=== PATIENT | male | born 1965 | race Caucasian/White ===

== ENCOUNTER 2024-09-12 11:52 | Observation (INO) ==
--- NOTE | 2024-09-12 13:11 | History & Physical Report ---
Date of Service September 12, 2024 Assessment & Plan (1) ICD (implantable cardioverter-defibrillator) in place: (2) Bifascicular bundle branch block: (3) Chronic systolic (congestive) heart failure: Plan 1. Single-chamber ICD: His ICD is at recommended replacement time, we will replace it with a biventricular device. 2. Bifascicular bundle branch block: He has bifascicular block with a QRS duration of over 150 ms on recent electrocardiography. It is likely he will benefit from biventricular pacing and we are hoping his ejection fraction and symptoms will improve. We will need to place a right atrial lead and a left ventricular lead. 3. Congestive heart failure: He does have congestive heart failure although his fluid status has been fairly well-controlled lately. His ejection fraction on recent echocardiography is 25 to 30%. I reviewed the indications, procedure, risks and alternatives with the patient, and answered all questions. Patient understands and agrees to the procedure. Consent obtained. I also reviewed the risks and use of sedation, patient understands and consent obtained. History of Present Illness Chief Complaint: Congestive heart failure, severe left ventricular dysfunction, wide QRS complex Primary Care Provider: Mahesh Herron III, JOEL This is a 58-year-old male with a history of coronary artery disease who is primarily followed by Dr. Stauffer. He had severe left ventricular dysfunction and initially had an attempt at implanting a biventricular ICD, this was done at [facility] on December 14, 2005. At that time it is noted that his coronary sinus system did not have branches large enough to accommodate a pacing lead. A single-chamber ICD was therefore placed using a Guidant model 018 564 cm lead. That the device was replaced with another [employer] single- chamber ICD on July 16, 2010. His ICD reached recommended replacement time January 23, 2024 and his electrocardiogram from January 26, 2024 showed bifascicular block with a QRS duration of 158 ms. An echocardiogram done January 26, 2024 showed severe left ventricular dysfunction with an ejection fraction of 20 to 25%, similar to prior studies years ago. An echocardiogram July 20, 2024 shows moderate to severe left ventricular dysfunction with an ejection fraction of 25 to 30%. Similar to April 2024. He was having a lot of premature ventricular beats and a Holter monitor done from January 26, 2024 through January 31, 2024 showed 19% premature reticular beats with a 12-beat run of nonsustained ventricular tachycardia. With these findings we should consider antiarrhythmic therapy to control his premature beats. His ICD has reached replacement time, however we wanted to try to optimize his medical therapy and see whether we could improve his left ventricular function (which we have not been able to) prior to replacing the device since upgrading to a biventricular ICD may be in order. He has been feeling surprisingly well despite his severe left ventricular dysfunction. He was unable to tolerate high dose beta-blockade due to severe side effects and he was unable to tolerate Entresto due to side effects as well, and therefore he remains on low-dose lisinopril and low-dose metoprolol succinate. He was able to tolerate spironolactone and Jardiance but his left ventricular function has not improved. He does notice however that he has less difficulty with fluid retention on these medications and uses his furosemide only sparingly. He does not have exertional chest discomfort and reports no ICD shocks. We therefore plan to upgrade his device to a biventricular unit by adding an atrial lead and a left ventricular pacing lead, and then replacing the device which is at recommended replacement time in any case. Allergies Allergy/AdvReac Type Severity Reaction Status Date / Time Sulfa (Sulfonamide Allergy Mild RASH Verified 09/12/24 12:17 Antibiotics) mesalamine [From Asacol] AdvReac Intermediate increased Verified 09/12/24 12:17 stomach problems olsalazine [From Dipentum] AdvReac Intermediate increased Verified 09/12/24 12:17 stomach problems Entresto AdvReac GI issues Uncoded 08/01/24 12:11 Home Medications Medication Instructions Recorded Confirmed Type aspirin 81 mg tablet,delayed 81 mg PO QAM 02/10/19 09/12/24 History release furosemide 40 mg tablet 40 mg PO DAILY PRN edema #90 tabs 08/21/19 09/12/24 Rx albuterol sulfate 90 mcg/actuation 2 puff inhalation .COMPLEX PRN 05/19/23 09/12/24 Rx aerosol inhaler (Ventolin HFA) Shortness Of Breath Or Wheezing #6.7 grams atorvastatin 80 mg tablet 80 mg PO QPM #90 tabs 09/15/23 09/12/24 Rx benralizumab 30 mg/mL subcutaneous 30 mg subcut .COMPLEX #1 mL 09/16/23 08/01/24 Rx syringe (Fasenra) spironolactone 25 mg tablet 25 mg PO DAILY #90 tabs 05/07/24 09/12/24 Rx empagliflozin 10 mg tablet 10 mg PO DAILY #90 tabs 05/23/24 09/12/24 Rx (Jardiance) fluticasone propionate 93 See Rx Instructions .Route 05/29/24 09/12/24 History mcg/actuation breath activated .COMPLEX PRN Shortness Of Breath aerosol (Xhance) pantoprazole 40 mg tablet,delayed 40 mg PO QDL #90 tabs 05/29/24 09/12/24 Rx release metoprolol succinate 25 mg 12.5 mg PO QPM 06/08/24 09/12/24 History tablet,extended release 24 hr (Toprol XL) tadalafil 20 mg tablet (Cialis) 20 mg PO DAILY PRN sexual activity 07/04/24 1 Rx #30 tabs mometasone-formoterol HFA 200 2 puff inhalation BID #13 grams 07/27/24 09/12/24 Rx mcg-5 mcg/actuation aerosol inhaler (Dulera) lisinopril 5 mg tablet 5 mg PO QAM #90 tabs 08/03/24 09/12/24 Rx montelukast 10 mg tablet 10 mg PO 09/12/24 History Past Med/Surg History Problem List Frequent PVCs Bifascicular bundle branch block NSVT (nonsustained ventricular tachycardia) Coronary atherosclerosis of [place] coronary vessel (09/18/11) Asthma (09/18/11) S/P CABG (coronary artery bypass graft) Presence of stent in artery Premature ventricular contractions Ischemic cardiomyopathy ICD (implantable cardioverter-defibrillator) in place Esophageal reflux Severe persistent asthma (Chronic) Allergic rhinitis (Chronic) Eosinophilic asthma (Chronic) Encounter for pre-operative examination History of colon polyps Plantar fasciitis Dysphagia Hypertension Hypercholesterolemia Chronic systolic (congestive) heart failure Chronic sinusitis of both maxillary sinuses (Chronic) Medical History History of COVID-19 Ischemic cardiomyopathy History of GI bleed History of ulcerative colitis CAD (coronary artery disease) Asthma History of myocardial infarction History of sleep apnea Ulcerative colitis Surgical History S/P CABG x 2 History of cardiac catheterization History of esophagogastroduodenoscopy (EGD) History of colonoscopy S/P wisdom tooth extraction S/P implantation of automatic cardioverter/defibrillator (AICD) Family History Grandmother Myocardial infarction Father Coronary heart disease Mother Anxiety Cancer Hypertension Brother Coronary heart disease Aunt Kidney disease Other No family history of adverse response to anesthesia No family history of bleeding disorder Denies family history of Colon cancer Ovarian cancer Prostate cancer Breast cancer Social History Smoking Status: Never smoker Second Hand Exposure: No; Do You Dip or Chew Tobacco: No; Hx Alcohol Use: Yes Alcohol type: hard liquor Alcohol Intake Frequency: 2-4 x/Month Hx Substance Use: No Preferred Language: Kazakh Communication Ability: Effective Visual Impairment: No Limitations Hearing Ability: Normal Clinical Nursing Intern Required: No Beliefs That Will Affect Care: None marital status: Current Living Situation: Spouse current occupational status: employed and unemployed 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 HEENT: Unremarkable Neck: No jugular venous distention, carotid pulses are normal and equal bilaterally without bruits. Pulmonary: Clear to auscultation bilaterally. Cardiac: Regular rhythm with no murmur, gallop or rub. Abdomen: Soft, nontender with normal bowel sounds. Extremities: No edema. Neurologic: No focal findings. Gait is steady. Skin: The device site is well-healed without erythema, swelling or tenderness. No rash, ecchymoses or petechiae. Results & Data Results & Data Vital Signs (Past 12 Hours) Vital Signs Pulse Resp BP Pulse Ox O2 Del Method 09/12/24 12:03 59 L 16 113/65 97 Room Air Laboratory Results Intake and Output 09/11/24 09/12/24 09/12/24 22:59 06:59 14:59 Other: Weight 104.1 kg Weight Measurement Method Standing Scale Patient Weight 09/13/24 06:59 Weight 104.1 kg PG Care Time/CCT Total # of Minutes Spent Total Time Spent with Patient: Total time spent is greater than 50% in coordination of care (as documented) at patient's floor/unit and/or counseling patient: Coding Level of Care Code None Diagnoses ICD (implantable cardioverter-defibrillator) in place Z95.810 Bifascicular bundle branch block I45.2 Chronic systolic (congestive) heart failure I50.22
--- NOTE | 2024-09-12 13:16 | Pre Anesthesia Assessment ---
Date of Service September 12, 2024 Pre Sedation Assessment Vital Signs Pulse Resp BP Pulse Ox O2 Del Method 09/12/24 12:03 59 L 16 113/65 97 Room Air Cardiovascular RRR, no murmur, no edema Respiratory normal respiratory effort, lungs clear to auscultation Pre-Sedation Airway Assessment Smoking Status: Never smoker Mallampati Class: II ASA: ASA3 NPO Status Date of Last Intake of Fluids: 09/11/24 Date of Last Intake of Solid Food: 09/11/24 Procedure Planning Contraindications for Sedation: none Current Medications Reviewed: Yes Notes The planned sedation has been discussed with the patient. Informed Consent was obtained. I have identified the patient, determined the appropriateness of sedation and have assessed the patient immediately prior to the procedure. All medicine(s) and interventions are by my order.
[2024-09-12] MEDS: LIDOCAINE 1% LOCAL 20 ML VIAL ONE (13:47)
[2024-09-12] MEDS: VANCOMYCIN HCL 1000MG/20ML VIAL ONE (13:48)
[2024-09-12] MEDS: WATER, STERILE FOR INJ 10 ML VIAL ONE (13:48)
[2024-09-12] MEDS: ceFAZolin 330 MG/ML 1 GM VIAL ONE ×2 (13:49→15:44)
[2024-09-12] MEDS: fentaNYL citrate PF 100 MCG/2 ML VIAL ONE ×3 (14:32→15:43)
[2024-09-12] MEDS: MIDAZOLAM HCL 5 MG/ML 1 ML VIAL ONE (14:32)
[2024-09-12] MEDS: diphenhydrAMINE 50 MG/ML VIAL ONE (15:00)
[2024-09-12] MEDS: MIDAZOLAM HCL 1 MG/ML 2ML VIAL ONE (15:00)
--- NOTE | 2024-09-12 16:10 | Electrophysiology Report ---
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 The subclavian vein was identified and found to be free of obstruction. Left axillary venipuncture was performed and a guidewire placed through left subclavian vein into the right atrium. A 2 cm incision was made through the old implant scar and carried down to the pectoralis fascia. A [employer] coronary sinus sheath was advanced to position in the right atrium. It was positioned near the coronary sinus, dye was injected to opacify the office of the coronary sinus and a guidewire was advanced into the coronary sinus. An appropriate sheath system was advanced into the coronary sinus. Dye was injected in the coronary sinus to identify the venous branches. A good branch was identified and a 0.014 inch guidewire was advanced into the branch. A left ventricular lead was advanced over the guidewire into good position. The pacing threshold was evaluated in this position as noted on the implant data sheet. The sheath system was then removed from the lead and the lead was attached to the anterior pectoral fascia using 2 sutures of 2-0 silk around the lead collar. A second left axillary venipuncture was performed and a guidewire placed the left subclavian vein into the right atrium. A 9 [place] [employer] lead introducer was placed over the guidewire into the left subclavian vein, the dilator and guidewire removed and a bipolar active-fixation steroid tipped atrial pacing lead was advanced the introducer into the superior vena cava. Using a curved stylette the lead was positioned in the region of the right atrial appendage, the screw was extended to attach the lead and the pacing and sensing characteristics were evaluated as noted on the implant data sheet. Diaphragmatic pacing was not evident at full output. The sheath was removed from the lead, and 2 sutures of 2-0 silk were placed around the lead collar and attached to the anterior pectoralis fascia. The ICD pocket was opened during left ventricular lead placement by further anesthetizing along the original implant site and incision was made through the scar and carried down to the ICD generator. The generator was dissected free of tissue and explanted. A vancomycin soaked sponge was placed in the pocket. Once all the leads were in position the ventricular lead was disconnected from the generator and a new biventricular ICD was attached to the chronic ventricular ICD lead and the new atrial lead as well as the new coronary sinus lead. The ICD was placed in the pocket with the leads coiled beneath it and the incision was closed with a running double subcutaneous closure of 3-0 Vicryl followed by running subcuticular skin closure of 4-0 Vicryl. Bacitracin ointment was placed on incision and a dressing applied. [facility] Elect[place]iology codes Indication for Procedure (1) Ischemic cardiomyopathy: (2) ICD (implantable cardioverter-defibrillator) battery depletion: (3) Bifascicular bundle branch block: (4) Chronic systolic (congestive) heart failure: Pacing Procedure 1: Pacin BiV electrode only - stand alone procedure Procedure 2: Pacin Insert permanent lead, single ICD Procedure 1: ICD: 25778 Multi ICD implant, chronic leads Miscellaneous Procedures Procedure 1: EP Miscellaneous: 24715 Contrast injection for venography Procedure 2: EP Miscellaneous: 10664-57 Vengraphy, extremity Procedure 3: EP Miscellaneous: 89505-83 Venography, CS supevsion/interp PG Moderate Sedation Codes Moderate Sedation Codes Procedure 1: Sedation/Anesthesia: 43097 Mod Sedation by the same physician;Init15 Min Child Age 5 & Up Procedure 2: Sedation/Anesthesia: 89529 Mod Sedation by the same physician; Ea [id number] Minutes
[2024-09-12] MEDS ORDERED: ACETAMINOPHEN W/CODEINE #3 1 TAB PO PRN (16:27)
[2024-09-12] MEDS ORDERED: ACETAMINOPHEN 325 MG TAB PO PRN (16:27)
[2024-09-12] MEDS ORDERED: FUROSEMIDE 40 MG TAB PO PRN (16:45)
[2024-09-12] MEDS ORDERED: ALBUTEROL HFA 8 GM INHALER INH PRN (16:45)
[2024-09-12] MEDS ORDERED: FLUTICASONE PROPIONATE NA SPR 16 GM BTL PRN (17:12)
[2024-09-12 19:35] VITALS: RESP 18
[2024-09-12] MEDS: ATORVASTATIN 40 MG TAB PO SCH (20:44)
[2024-09-12] MEDS: METOPROLOL SUCC 25MG EXT REL TAB PO SCH (20:44)
[2024-09-12] MEDS: predniSONE 5 MG TAB PO SCH (23:39)
[2024-09-13 03:38] VITALS: TEMP 97.9; O2SAT 94
[2024-09-13 07:01] VITALS: BP 112/69
--- NOTE | 2024-09-13 07:41 | XRay Report ---
XR chest 2V PA/lateral HISTORY: 58 years-old Male EXACT TIME ORDERED Evaluate for pneumothorax and l status post placement of a left subclavian pacer COMPARISON: CTA chest 02/20/2022 TECHNIQUE: PA and lateral views of the chest FINDINGS: Cardiac silhouette is enlarged. Median sternotomy. Left subclavian pacer/AICD has been placed. No pos tprocedural pneumothorax. Pulmonary vascular congestion. No pleural effusion. Bones appear grossly in tact. IMPRESSION: Status post placement of a left subclavian pacer/AICD. No postprocedural pneumothorax mario ntified. ACT 112: Negative or not required by law. The above report was generated using voice recognition software. It may contain grammatical, syntax o r spelling errors. Electronically signed by: Adonay Brown M.D. 09/13/2024 7:40 AM
[2024-09-13] MEDS: SPIRONOLACTONE 25 MG TAB PO SCH (07:47)
[2024-09-13] MEDS: FLUTICASONE/VILANTEROL 200/25MCG 14 PUFFS/INHALER INH SCH (07:48)
[2024-09-13] MEDS: lisinopril 5 MG TAB PO SCH (07:48)
[2024-09-13] MEDS: EMPAGLIFLOZIN 10 MG TAB PO SCH (07:49)
[2024-09-13] MEDS: ASPIRIN 81 MG ECTAB PO SCH (07:49)
[2024-09-13] MEDS: PANTOprazole 40 MG TAB PO SCH (07:50)
--- NOTE | 2024-09-13 09:43 | Cardiology Progress Note ---
Date of Service September 13, 2024 Assessment & Plan (1) Ischemic cardiomyopathy: (2) ICD (implantable cardioverter-defibrillator) battery depletion: (3) Bifascicular bundle branch block: (4) Chronic systolic (congestive) heart failure: Plan 1. Single-chamber ICD: His ICD is working well but with diaphragmatic pacing. 2. Bifascicular bundle branch block: He has bifascicular block with a QRS duration of over 150 ms on recent electrocardiography. It is likely he will benefit from biventricular pacing and we are hoping his ejection fraction and symptoms will improve. 3. Congestive heart failure: He does have congestive heart failure although his fluid status has been fairly well-controlled lately. His ejection fraction on recent echocardiography is 25 to 30%. 4. POD#1: Doing well from surgical standpoint, Admission and Anticipated Discharge Date Admission Date: September 12, 2024 Subjective He is reporting symptoms compatible with diaphragmatic pacing, but otherwise feels well. No chest pain or SOB Physical Exam Physical Exam: Incision has mild bleeding, mild swelling. No erythema. Cardiac: Regular rhythm and rate, no rub. Lungs: Clear Results & Data Vital Signs (Past 12 Hours) Vital Signs Temp Pulse Pulse Resp BP Pulse Ox O2 Del Method 09/13/24 07:32 60 09/13/24 07:01 36.6 C 76 18 112/69 94 Room Air 09/13/24 03:38 36.6 C 65 18 103/63 94 Room Air 09/12/24 23:13 36.7 C 59 L 18 118/79 96 Room Air 09/12/24 23:09 59 L Diagnostic Findings ECG: fair bi-V paced complex Telemetry: A pacing V pacing, one wide complex run 12 beats in duration PG Care Time/CCT Total # of Minutes Spent Total Time Spent with Patient: Total time spent is greater than 50% in coordination of care (as documented) at patient's floor/unit and/or counseling patient: Coding Level of Care Code 31845 Post Operative Follow-Up Diagnoses Ischemic cardiomyopathy I25.5 ICD (implantable cardioverter-defibrillator) battery depletion Z45.02 Bifascicular bundle branch block I45.2 Chronic systolic (congestive) heart failure I50.22 CPT Codes Implantable Defib Multi lead programming - 71518 ([id number])
[2024-09-13 11:17] VITALS: PULSE 76
[2024-09-13] MEDS ORDERED: predniSONE 5 MG TAB PO SCH (21:00)
--- NOTE | 2024-09-13 21:16 | Electrocardiogram Report ---
Test Reason : Blood Pressure : */* mmHG Vent. Rate : 66 BPM Atrial Rate : 66 BPM P-R Int : 140 ms QRS Dur : 136 ms QT Int : 458 ms P-R-T Axes : 61 244 38 degrees QTcB Int : 480 ms Atrial-sensed ventricular-paced rhythm with occasional Premature ventricular complexes Biventricular pacemaker detected Abnormal ECG When compared with ECG of 01-Aug-2024 12:12, Ventricular pacing is now present Confirmed by Tian Quiroz ([id number]) on 09/13/2024 9:15:56 PM Referred By: Harshal Anders Confirmed By: Tian Quiroz
--- NOTE | 2024-09-13 21:16 | Electrocardiogram Report ---
Test Reason : Blood Pressure : */* mmHG Vent. Rate : 64 BPM Atrial Rate : 64 BPM P-R Int : 140 ms QRS Dur : 136 ms QT Int : 458 ms P-R-T Axes : 56 250 42 degrees QTcB Int : 472 ms Atrial-sensed ventricular-paced rhythm Biventricular pacemaker detected Abnormal ECG When compared with ECG of 12-Sep-2024 16:07, Premature ventricular complexes are no longer Present Confirmed by Tian Quiroz ([id number]) on 09/13/2024 9:16:35 PM Referred By: Harshal Anders Confirmed By: Tian Quiroz
--- NOTE | 2024-09-16 08:55 | Discharge Summary ---
Date of Service September 16, 2024 Admission HPI Per Admitting Provider This is a 58-year-old male with a history of coronary artery disease who is primarily followed by Dr. Stauffer. He had severe left ventricular dysfunction and initially had an attempt at implanting a biventricular ICD, this was done at [facility] on December 14, 2005. At that time it is noted that his coronary sinus system did not have branches large enough to accommodate a pacing lead. A single-chamber ICD was therefore placed using a Guidant model 018 564 cm lead. That the device was replaced with another [employer] single- chamber ICD on July 16, 2010. His ICD reached recommended replacement time January 23, 2024 and his electrocardiogram from January 26, 2024 showed bifascicular block with a QRS duration of 158 ms. An echocardiogram done January 26, 2024 showed severe left ventricular dysfunction with an ejection fraction of 20 to 25%, similar to prior studies years ago. An echocardiogram July 20, 2024 shows moderate to severe left ventricular dysfunction with an ejection fraction of 25 to 30%. Similar to April 2024. He was having a lot of premature ventricular beats and a Holter monitor done from January 26, 2024 through January 31, 2024 showed 19% premature reticular beats with a 12-beat run of nonsustained ventricular tachycardia. With these findings we should consider antiarrhythmic therapy to control his premature beats. His ICD has reached replacement time, however we wanted to try to optimize his medical therapy and see whether we could improve his left ventricular function (which we have not been able to) prior to replacing the device since upgrading to a biventricular ICD may be in order. He has been feeling surprisingly well despite his severe left ventricular dysfunction. He was unable to tolerate high dose beta-blockade due to severe side effects and he was unable to tolerate Entresto due to side effects as well, and therefore he remains on low-dose lisinopril and low-dose metoprolol succinate. He was able to tolerate spironolactone and Jardiance but his left ventricular function has not improved. He does notice however that he has less difficulty with fluid retention on these medications and uses his furosemide only sparingly. He does not have exertional chest discomfort and reports no ICD shocks. We therefore plan to upgrade his device to a biventricular unit by adding an atrial lead and a left ventricular pacing lead, and then replacing the device which is at recommended replacement time in any case. Admission Exam (Per Admitting) Constitutional Constitutional: Alert, cooperative and in no distress. HEENT: Unremarkable Neck: No jugular venous distention, carotid pulses are normal and equal bilaterally without bruits. Pulmonary: Clear to auscultation bilaterally. Cardiac: Regular rhythm with no murmur, gallop or rub. Abdomen: Soft, nontender with normal bowel sounds. Extremities: No edema. Neurologic: No focal findings. Gait is steady. Skin: The device site is well-healed without erythema, swelling or tenderness. No rash, ecchymoses or petechiae. Discharge Data Procedures Performed Operation Date: 09/12/24 13:00 Actual Procedures s Venogram, Unilateral - Harshal Anders MD p ICD Insertion Single or Dual - Harshal Anders MD Hospital Course (1) Ischemic cardiomyopathy: (2) ICD (implantable cardioverter-defibrillator) battery depletion: (3) Bifascicular bundle branch block: (4) Chronic systolic (congestive) heart failure: Plan 1. Postop day #1: Upgrade to a biventricular ICD September 12, 2024, his ICD is working well but with diaphragmatic pacing. Stable for discharge. 2. Bifascicular bundle branch block: He has bifascicular block with an unpaced QRS duration of over 150 ms on recent electrocardiography. This has improved although the QRS complex is not ideal 3. Congestive heart failure: He does have a history of congestive heart failure although his fluid status has been fairly well-controlled lately. His ejection fraction on recent echocardiography is 25 to 30 percent. Coding Level of Care Code None Diagnoses Ischemic cardiomyopathy I25.5 ICD (implantable cardioverter-defibrillator) battery depletion Z45.02 Bifascicular bundle branch block I45.2 Chronic systolic (congestive) heart failure I50.22
== END 2024-09-13 11:41 | disposition home or self-care (01) ==
LOC: EP 11:52 → 2S 11:52
PROC: EPB.ICD (2024-09-12 13:00)

== ENCOUNTER 2025-07-06 22:15 | Inpatient (IN) ==
--- NOTE | 2025-07-06 22:48 | Emergency Department Note ---
Impression & Plan Ventricular fibrillation, ICD (implantable cardioverter-defibrillator) discharge ED Provider Note CHIEF COMPLAINT: "I got shocked" HISTORY OF PRESENT ILLNESS: This 59-year-old male patient with significant past medial history bifascicular bundle branch block, nonsustained ventricular tachycardia, CAD, asthma, ischemic cardiomyopathy, ICD in place, GERD, severe persistent eosinophilic asthma, hypertension, hypercholesterolemia, and chronic systolic heart failure, presents to the emergency department via private vehicle accompanied by his for evaluation after getting shocked by his ICD. Patient states he was at dinner and then went to a show downtown. He was walking back to his car when he felt a shock from his ICD. The patient states he felt somewhat lightheaded and dizzy and was doing some deep breaths prior to the shock. He states he has felt similar before and notes he does not believe that he has ever gotten shocked in the past. The patient follows with [facility] cardiology. He states at this time, he is feeling totally normal. He denies any chest pain or shortness of breath. No abdominal pain, nausea, vomiting. No dizziness, numbness, or tingling. No headache or visual disturbances. History provided by: Patient REVIEW OF SYSTEMS: A 10 system review of systems was performed with positives and pertinent negatives listed in the history of present illness. All other systems were reviewed and are negative. ALLERGIES: Sulfa, Asacol, Dipentum, Entresto PHYSICAL EXAM: VITALS: Vitals are noted on the nurse's note and reviewed by myself. GENERAL: This is a 59-year-old male, in no acute distress, nondiaphoretic, well- developed well-nourished. SKIN: The skin was without rashes, erythema, edema, or bruising. There is no tenting of the skin. Capillary refill less than 2 seconds. HEAD: Normocephalic atraumatic. EYES: Conjunctivae without injection, sclerae without icterus. MOUTH: Mucous membranes moist. Tonsils are not enlarged. Pharynx without erythema or exudate. Uvula midline. Airway patent. Tongue does not deviate. NECK: Supple without nuchal rigidity. No lymphadenopathy. Cervical spine is nontender. No JVD. HEART: Regular rate and rhythm without murmurs gallops or rubs. LUNGS: Clear to auscultation bilaterally without wheezes, rales or rhonchi. No retractions or accessory muscle use. ABDOMEN: Positive bowel sounds x 4. Soft, nontender, without masses or organomegaly. Murray sign negative. No guarding or rebound tenderness. MUSCULOSKELETAL: No muscle atrophy, erythema, or edema noted. Full range of motion without joint tenderness in all extremities. No tenderness to palpation. Normal gait. Strength 5/5 throughout. NEURO: Patient was alert and oriented to person place and time. No focal neurological deficits. An order was placed for continuous personnel monitor. The monitor showed a normal sinus rhythm at a ventricular rate of 62 bpm, per my interpretation. EKG was reviewed by myself and found to be atrial-sensed ventricular-paced rhythm with premature supraventricular complexes which are new when compared to EKG of 09/12/2024. Ventricular rate is 71 bpm. Imaging as interpreted by myself and the radiologist revealed stable cardiomegaly, with radiologist interpretation as above. I agree with the radiologist's findings as based upon my independent interpretation. EMERGENCY DEPARTMENT COURSE: The patient was evaluated as above. The patient presents after an ICD defibrillation. At this time, the patient is feeling well. He has no complaints. IV access was obtained, labs were drawn. Labs reviewed. Per my interpretation, no leukocytosis or anemia. No thrombocytopenia. Renal, hepatic function and electrolytes without significant abnormality. INR 0.9. Troponin 16.6. Lipase 47. Chest x-ray and EKG as above. Pacemaker interrogation shows 1 shock at 2109 this evening due to V-fib episode. Patient has had several dysrhythmias over the past several weeks, though this is the first shock. Did discuss case with Dr. Lopes, [facility] hospitalist physician. The patient will be admitted to the hospitalist service. Please see hospitalist dictation regarding ongoing management and care of this patient as well as final disposition. Case was discussed with the attending physician. This visit is during a period of high volume and high acuity in the emergency department. I attest that I have personally reviewed the patient medication list. I attest that I have reviewed the patient's blood pressure and it was found to be elevated. GCS: 15 In the evaluation and treatment of this patient the following differential diagnoses were entertained: Cardiac ischemia, aortic dissection, pulmonary embolism, pneumothorax, pneumonia, pericarditis, myocarditis, esophageal rupture, GERD, cholecystitis, pancreatitis, musculoskeletal, as well as other pathologies. The chart was completed utilizing [employer] Speech voice recognition software. Grammatical errors, random word insertions, pronoun errors, and incomplete sentences are an occasional consequence of this system due to software limitations, ambient noise, and hardware issues. Any formal questions or concerns about the content, text, or information contained within the body of this dictation should be directly addressed to the provider for clarification. Past Med/Surg History Problem List (Updated 07/07/25 @ 05:55 by Whitney Pantoja PA-C) ICD (implantable cardioverter-defibrillator) discharge (Acute) Ventricular fibrillation (Acute) Bifascicular bundle branch block NSVT (nonsustained ventricular tachycardia) Coronary atherosclerosis of pala coronary vessel (09/18/11) Asthma (09/18/11) Ischemic cardiomyopathy ICD (implantable cardioverter-defibrillator) in place Esophageal reflux Severe persistent asthma (Chronic) Allergic rhinitis (Chronic) Eosinophilic asthma (Chronic) Plantar fasciitis Dysphagia Hypertension Hypercholesterolemia Chronic systolic (congestive) heart failure Chronic sinusitis of both maxillary sinuses (Chronic) Medical History ICD (implantable cardioverter-defibrillator) battery depletion History of colon polyps Presence of stent in artery History of COVID-19 05/08/23 @ [facility]--fever, harsh cough, fatigue--pt states all symptoms have improved (he was on paxlovid) Ischemic cardiomyopathy History of GI bleed History of ulcerative colitis CAD (coronary artery disease) follows with Dr. Stauffer>NEXT APT 12/05/21 Asthma HAS NOT NEEDED INHALER RECENTLY History of myocardial infarction 2000; 2012 History of sleep apnea resolved with wt loss Ulcerative colitis Surgical History S/P CABG (coronary artery bypass graft) S/P CABG x 2 History of cardiac catheterization History of esophagogastroduodenoscopy (EGD) History of colonoscopy S/P wisdom tooth extraction S/P implantation of automatic cardioverter/defibrillator (AICD) Family History Grandmother Myocardial infarction Father Coronary heart disease Mother Anxiety Cancer Hypertension Brother Coronary heart disease Aunt Kidney disease Other No family history of adverse response to anesthesia No family history of bleeding disorder Denies family history of Colon cancer Ovarian cancer Prostate cancer Breast cancer Social History Smoking Status: Unknown if ever smoked Second Hand Exposure: No; Do You Dip or Chew Tobacco: No; Hx Alcohol Use: No Hx Substance Use: No Preferred Language: Surinamese Communication Ability: Effective Visual Impairment: No Limitations Hearing Ability: Normal Environmental Emergencies Planner Required: No Beliefs That Will Affect Care: None marital status: Current Living Situation: Spouse current occupational status: employed 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 Other Information That Helps Us Care for You: No Feels Safe at Home: Yes Safety Concerns: Feels Safe At This Time Childhood Exposure to Second-Hand Smoke: No Diet: vegan caffeine: Yes (one coffee a day ) during the past year weight has: remained stable Dental Care, Regularly: Yes Physical Activity Frequency: Daily Seatbelt Use: always Sunscreen Use: No Assistive Devices: Glasses Allergies Allergies Allergy/AdvReac Type Severity Reaction Status Date / Time Sulfa (Sulfonamide Allergy Mild RASH Verified 05/30/25 11:02 Antibiotics) mesalamine [From Asacol] AdvReac Intermediate increased Verified 05/30/25 11:02 stomach problems olsalazine [From Dipentum] AdvReac Intermediate increased Verified 05/30/25 11:02 stomach problems sacubitril [From Entresto] AdvReac Gastrointestinal Verified 05/30/25 11:02 Upset valsartan [From Entresto] AdvReac Gastrointestinal Verified 05/30/25 11:02 Upset Home Meds Home Medications Medication Instructions Recorded Confirmed aspirin 81 mg tablet,delayed 81 mg PO QAM 02/10/19 05/30/25 release Previous Rx's Medication Instructions Recorded furosemide 40 mg tablet 40 mg PO DAILY PRN edema #90 tabs 08/21/19 albuterol sulfate 90 mcg/actuation 2 puff inhalation .COMPLEX PRN 05/19/23 aerosol inhaler (Ventolin HFA) Shortness Of Breath Or Wheezing #6.7 grams tadalafil 20 mg tablet (Cialis) 20 mg PO DAILY PRN sexual activity 07/04/24 #30 tabs lisinopril 5 mg tablet 5 mg PO QAM #90 tabs 08/03/24 metoprolol succinate 25 mg 12.5 mg (1/2 x 25 mg) PO QPM #45 10/02/24 tablet,extended release 24 hr tabs (Toprol XL) empagliflozin 10 mg tablet 10 mg PO DAILY #90 tabs 10/06/24 (Jardiance) benralizumab 30 mg/mL subcutaneous 30 mg subcut .COMPLEX #1 mL 10/09/24 auto-injector atorvastatin 80 mg tablet 80 mg PO QPM #90 tabs 12/04/24 prednisone 10 mg tablet 5 mg (1/2 x 10 mg) PO DAILY #30 01/04/25 tabs fluticasone propionate 93 See Rx Instructions .Route 01/31/25 mcg/actuation breath activated .COMPLEX PRN Shortness Of Breath aerosol (Xhance) #16 mL mometasone-formoterol HFA 200 2 puff inhalation BID #13 grams 01/31/25 mcg-5 mcg/actuation aerosol inhaler (Dulera) spironolactone 25 mg tablet 25 mg PO DAILY #90 tabs 04/23/25 pantoprazole 40 mg tablet,delayed 40 mg PO QDL #90 tabs 06/25/25 release Results & Data (ED) Vital Signs Vital Signs - 24 hr 07/06/25 22:16 07/06/25 22:22 07/06/25 22:24 Temperature 36.8 C Temperature Source Temporal Artery Scan Pulse Rate 67 74 Pulse Rate [Apical] Pulse Rate from SpO2 Sensor Pulse Rhythm Regular Pulse Strength Normal Respiratory Rate 18 18 Respiratory Effort / Characteristics Non-Labored Spontaneous Respiratory Depth Normal Respiratory Pattern Regular Blood Pressure 125/82 Blood Pressure [Right Arm] Blood Pressure Mean 96 Blood Pressure Mean [Right Arm] Blood Pressure Position Sitting Blood Pressure Position [Right Arm] Pulse Oximetry 98 99 99 Oxygen Delivery Method Room Air Room Air Room Air Sepsis Recent Fever Within 48 Hours No Sepsis New/Unexplained Change in Mental Status No Sepsis Action Taken by Nursing No Action Required 07/06/25 22:24 07/06/25 22:24 07/06/25 23:03 Temperature Temperature Source Pulse Rate 84 Pulse Rate [Apical] 71 Pulse Rate from SpO2 Sensor 66 Pulse Rhythm Pulse Strength Respiratory Rate 16 20 Respiratory Effort / Characteristics Non-Labored Spontaneous Respiratory Depth Normal Respiratory Pattern Regular Blood Pressure 115/79 Blood Pressure [Right Arm] 141/90 H Blood Pressure Mean 91 Blood Pressure Mean [Right Arm] 107 Blood Pressure Position Blood Pressure Position [Right Arm] Semi-fowlers Pulse Oximetry 99 97 Oxygen Delivery Method Room Air Sepsis Recent Fever Within 48 Hours Sepsis New/Unexplained Change in Mental Status Sepsis Action Taken by Nursing 07/06/25 23:30 07/06/25 23:33 07/07/25 00:03 Temperature Temperature Source Pulse Rate Pulse Rate [Apical] Pulse Rate from SpO2 Sensor 69 69 Pulse Rhythm Pulse Strength Respiratory Rate 20 12 Respiratory Effort / Characteristics Respiratory Depth Respiratory Pattern Blood Pressure 126/79 126/79 124/71 Blood Pressure [Right Arm] Blood Pressure Mean 89 94 88 Blood Pressure Mean [Right Arm] Blood Pressure Position Blood Pressure Position [Right Arm] Pulse Oximetry 97 98 Oxygen Delivery Method Sepsis Recent Fever Within 48 Hours Sepsis New/Unexplained Change in Mental Status Sepsis Action Taken by Nursing Laboratory Data 07/06/25 22:35 07/06/25 22:35 Lab Results 07/06/25 Range/Units 22:35 WBC 9.21 (4.8-10.8) K/ul RBC 4.81 (4.70-6.10) M/uL Hgb 15.0 (14.0-18.0) g/dl Hct 45.2 (42.0-52.0) % MCV 94.0 (80.0-100.0) fL MCH 31.2 (25.0-34.0) pg MCHC 33.2 (32.0-36.0) g/dL RDW Std Deviation 44.5 (36.4-46.3) fL RDW Coeff of Héctor 13.0 (11.5-14.5) % Plt Count 125 L (130-400) K/uL MPV 11.6 (9.4-12.4) fL Immature Gran % (Auto) 0.4 % Neut % (Auto) 62.4 % Lymph % (Auto) 24.8 % [place] % (Auto) 12.1 % Eos % (Auto) 0.0 % Baso % (Auto) 0.3 % Neut # (Auto) 5.75 (1.40-6.50) K/uL Lymph # (Auto) 2.28 (1.20-3.40) K/uL [place] # (Auto) 1.11 H (0.11-0.59) K/uL Eos # (Auto) 0.00 (0.00-0.50) K/uL Baso # (Auto) 0.03 (0.00-0.20) K/uL Immature Gran # (Auto) 0.04 (0.01-0.20) K/uL PT 10.2 (9.0-12.0) Seconds INR 0.9 (0.9-1.1) APTT 27 (21-31) Seconds PTT Ratio 1.0 Sodium 136 (136-145) mmol/L Potassium 3.8 (3.5-5.1) mmol/L Chloride 103 (98-107) mmol/L Carbon Dioxide 26 (21-32) mmol/L Anion Gap 7 (3-11) BUN 16 (6-23) mg/dl Creatinine 1.18 (0.6-1.4) mg/dl Est Cr Clr Drug Dosing 83.0 ml/min eGFR 71.53 BUN/Creatinine Ratio 13.6 (10-20) Glucose 93 (70-99(Fasting)) mg/dl Calcium 8.8 (8.6-10.3) mg/dl Magnesium 2.1 (1.7-2.4) mg/dl Total Bilirubin 0.5 (0.2-1.0) mg/dl AST 17 (13-39) U/L ALT 11 (7-52) U/L Alkaline Phosphatase 114 H (34-104) U/L Troponin I High Sens 16.6 (0-20) pg/ml Total Protein 6.6 (6.0-8.3) gm/dl Albumin 3.8 (3.4-5.0) gm/dl Globulin 2.8 (2.5-4.0) gm/dl Albumin/Globulin Ratio 1.4 (0.9-2) Lipase 47 (11-82) U/L Administered Medications Discontinued Medications Potassium Chloride (Potassium Chloride Crtab 20 Meq Tabcr) 40 meq PO NOW STA Stop: 07/07/25 00:28 Last Admin: 07/07/25 01:12 Dose: 40 meq Documented By: Imaging Data Radiologist's Impression: Chest X-Ray 07/06/25 22:22 Exam(s): XR CXR 1 VIEW EXAM: XR Chest, 1 View CLINICAL HISTORY: Chest pain, nonspecific. TECHNIQUE: Frontal view of the chest. COMPARISON: 09/13/2024 FINDINGS: Lungs: No focal airspace consolidation. The pulmonary vasculature demonstrates no significant radiographic abnormality. Pleural space: Unremarkable. No pneumothorax. No large pleural effusion. Heart: Cardiomegaly. Stable postsurgical changes. Mediastinum: The mediastinal contours are stable. The trachea is midline. Bones/joints: The sternal hardware appears maintained. No acute fracture. Tubes, lines and devices: Left subclavian central venous catheter tip in the approach dual chamber defibrillator pacer superior vena cava. IMPRESSION: Stable cardiomegaly with postoperative changes and defibrillator pacer leads. No focal airspace consolidation. No radiographic evidence for florid CHF. Electronically signed by: Sloan Ortega MD 07/07/25 01:00 AM Discharge Plan Visit Data Chief Complaint: Cardiac Assessment Stated Complaint: DEFIBRULATOR DISCHARGED ED Provider: Hernando Newell ED Midlevel Provider: Whitney Pantoja Discharge Problem: Ventricular fibrillation, ICD (implantable cardioverter-defibrillator) discharge Patient Disposition: Admitted As Inpatient Condition: Good Discharge Instructions Interventions: ED Discharge Assessment Last Done: 07/07/25 01:29
[2025-07-06 22:51] LABS: Hematocrit (blood only) 45.2 % (42.0-52.0); Hemoglobin 15.0 g/dl (14.0-18.0); Immature Granulocytes # (auto) 0.04 K/uL (0.01-0.20); Immature Granulocytes % (auto) 0.4 %; Mean Corpuscular Hemoglobin 31.2 pg (25.0-34.0); Mean Corpuscular Volume 94.0 fL (80.0-100.0); Platelet Count 125 K/uL (130-400); RDW Standard Deviation 44.5 fL (36.4-46.3); Red Blood Count 4.81 M/uL (4.70-6.10); White Blood Count 9.21 K/ul (4.8-10.8)
[2025-07-06 23:07] LABS: Alanine Aminotransferase 11.0 U/L (7-52); Albumin Globulin Ratio 1.4 (0.9-2); Alkaline Phosphatase 114.0 U/L (34-104); Anion Gap 7.0 (3-11); Bilirubin,Total 0.5 mg/dl (0.2-1.0); Blood Urea Nitrogen 16.0 mg/dl (6-23); Calcium 8.8 mg/dl (8.6-10.3); Carbon Dioxide 26.0 mmol/L (21-32); Chloride 103.0 mmol/L (98-107); Creatinine Clr Calc Pharmacy 83.0 ml/min; Globulin 2.8 gm/dl (2.5-4.0); Glucose 93.0 mg/dl (70-99(Fasting)); Lipase 47.0 U/L (11-82); Potassium 3.8 mmol/L (3.5-5.1); Sodium 136.0 mmol/L (136-145); Total Protein 6.6 gm/dl (6.0-8.3)
[2025-07-06 23:26] LABS: INR 0.9 (0.9-1.1); Partial Thromboplastin Time 27 Seconds (21-31); Prothrombin Time 10.2 Seconds (9.0-12.0)
[2025-07-07 00:39] LABS: Magnesium 2.1 mg/dl (1.7-2.4)
--- NOTE | 2025-07-07 00:41 | History & Physical Report ---
Date of Service July 07, 2025 Assessment & Plan (1) Ventricular fibrillation: (2) ICD (implantable cardioverter-defibrillator) discharge: (3) NSVT (nonsustained ventricular tachycardia): (4) Ischemic cardiomyopathy: Plan The patient is a 59-year-old male with a past medical history including bifascicular bundle branch block, nonsustained ventricular tachycardia, CAD, asthma, ischemic cardiomyopathy, ICD in place, GERD, severe persistent eosinophilic asthma, hypertension, hypercholesterolemia, and chronic systolic heart failure. He reports that as he and his were walking from dinner earlier this evening, shortly after 10:00, he started to feel lightheaded, dizzy and was doing some deep breathing, as he had several times before, and then was shocked by his ICD. After that he felt generally weak and fatigued, and his brought him to the emergency department for assessment. In the emergency department [employer] was consulted, and reports that the patient had an episode of ventricular fibrillation, that was shocked at 21:09. He underwent routine laboratories, had a normal chest x-ray, and [facility] Card[facility] Dr. Anders was consulted by the ED, and felt that antiarrhythmic such amiodarone were not indicated, and patient was then admitted to the PCU. Ventricular fibrillation/status post ICD discharge- The patient will be admitted to telemetry for serial cardiac enzymes, serial EKG's, cardiac rhythm monitoring Most recent echocardiogram from 03/13/2025 showed ejection fraction of 25-30%, with akinetic apex, and other leblanc hypokinetic, with no significant change compared to 07/20/2024 Troponin 16.6, will be followed serially Continue aspirin, Jardiance, lisinopril, metoprolol succinate, spironolactone and furosemide For a potassium of 3.8, patient was given Klor-Con 40 mill equivalents p.o. Magnesium level was normal at 2.1 Follow serial CBC with differential, renal function panel, magnesium and troponin Consult cardiology Asthma- Continue routine inhalers Hyperlipidemia- Continue atorvastatin GERD- Continue pantoprazole Chronic prednisone use- Continue 5 mg daily, no need for stress dosing at this time History of Present Illness Chief Complaint: The patient presents to the emergency department via private vehicle, accompanied by his . He reports that he and his had gone to dinner, and while walking back to his car he felt somewhat lightheaded, dizzy and was doing some deep breathing, and then had a shock from his ICD. He reports having other episodes of similar symptoms in the past, but is never been shocked before. In the emergency department he primarily reports being fatigued, he denies chest pain, shortness of breath, nausea or vomiting. Primary Care Provider: Mahesh Herron, III, JOEL The patient is a 59-year-old male with a past medical history including bifascicular bundle branch block, nonsustained ventricular tachycardia, CAD, asthma, ischemic cardiomyopathy, ICD in place, GERD, severe persistent eosinophilic asthma, hypertension, hypercholesterolemia, and chronic systolic heart failure. He reports that as he and his were walking from dinner earlier this evening, shortly after 10:00, he started to feel lightheaded, dizzy and was doing some deep breathing, as he had several times before, and then was shocked by his ICD. After that he felt generally weak and fatigued, and his brought him to the emergency department for assessment. In the emergency department [employer] was consulted, and reports that the patient had an episode of ventricular fibrillation, that was shocked at 21:09. He underwent routine laboratories, had a normal chest x-ray, and was [facility] Cardiology Dr. Anders was consulted by the ED, and felt that antiarrhythmic such amiodarone were not indicated, and patient was then admitted to the PCU. Allergies Allergy/AdvReac Type Severity Reaction Status Date / Time Sulfa (Sulfonamide Allergy Mild RASH Verified 05/30/25 11:02 Antibiotics) mesalamine [From Asacol] AdvReac Intermediate increased Verified 05/30/25 11:02 stomach problems olsalazine [From Dipentum] AdvReac Intermediate increased Verified 05/30/25 11:02 stomach problems sacubitril [From Entresto] AdvReac Gastrointestinal Verified 05/30/25 11:02 Upset valsartan [From Entresto] AdvReac Gastrointestinal Verified 05/30/25 11:02 Upset Home Medications Medication Instructions Recorded Confirmed Type aspirin 81 mg tablet,delayed 81 mg PO QAM 02/10/19 05/30/25 History release furosemide 40 mg tablet 40 mg PO DAILY PRN edema #90 tabs 08/21/19 05/30/25 Rx albuterol sulfate 90 mcg/actuation 2 puff inhalation .COMPLEX PRN 05/19/23 05/30/25 Rx aerosol inhaler (Ventolin HFA) Shortness Of Breath Or Wheezing #6.7 grams tadalafil 20 mg tablet (Cialis) 20 mg PO DAILY PRN sexual activity 07/04/24 05/30/25 Rx #30 tabs lisinopril 5 mg tablet 5 mg PO QAM #90 tabs 08/03/24 05/30/25 Rx metoprolol succinate 25 mg 12.5 mg (1/2 x 25 mg) PO QPM #45 10/02/24 05/30/25 Rx tablet,extended release 24 hr tabs (Toprol XL) empagliflozin 10 mg tablet 10 mg PO DAILY #90 tabs 10/06/24 05/30/25 Rx (Jardiance) benralizumab 30 mg/mL subcutaneous 30 mg subcut .COMPLEX #1 mL 10/09/24 05/30/25 Rx auto-injector atorvastatin 80 mg tablet 80 mg PO QPM #90 tabs 12/04/24 05/30/25 Rx prednisone 10 mg tablet 5 mg (1/2 x 10 mg) PO DAILY #30 01/04/25 05/30/25 Rx tabs fluticasone propionate 93 See Rx Instructions .Route 01/31/25 05/30/25 Rx mcg/actuation breath activated .COMPLEX PRN Shortness Of Breath aerosol (Xhance) #16 mL mometasone-formoterol HFA 200 2 puff inhalation BID #13 grams 01/31/25 05/30/25 Rx mcg-5 mcg/actuation aerosol inhaler (Dulera) spironolactone 25 mg tablet 25 mg PO DAILY #90 tabs 04/23/25 05/30/25 Rx pantoprazole 40 mg tablet,delayed 40 mg PO QDL #90 tabs 06/25/25 Rx release Past Med/Surg History Problem List (Updated 07/07/25 @ 04:02 by Asif Lopes MD) ICD (implantable cardioverter-defibrillator) discharge Ventricular fibrillation Bifascicular bundle branch block NSVT (nonsustained ventricular tachycardia) Coronary atherosclerosis of [place] coronary vessel (09/18/11) Asthma (09/18/11) Ischemic cardiomyopathy ICD (implantable cardioverter-defibrillator) in place Esophageal reflux Severe persistent asthma (Chronic) Allergic rhinitis (Chronic) Eosinophilic asthma (Chronic) Plantar fasciitis Dysphagia Hypertension Hypercholesterolemia Chronic systolic (congestive) heart failure Chronic sinusitis of both maxillary sinuses (Chronic) Medical History (Updated 07/07/25 @ 04:02 by Asif Lopes MD) ICD (implantable cardioverter-defibrillator) battery depletion History of colon polyps Presence of stent in artery History of COVID-19 05/08/23 @ [facility]--fever, harsh cough, fatigue--pt states all symptoms have improved (he was on paxlovid) Ischemic cardiomyopathy History of GI bleed History of ulcerative colitis CAD (coronary artery disease) follows with Dr. Stauffer>NEXT APT 12/05/21 Asthma HAS NOT NEEDED INHALER RECENTLY History of myocardial infarction 2000; 2012 History of sleep apnea resolved with wt loss Ulcerative colitis Surgical History S/P CABG (coronary artery bypass graft) S/P CABG x 2 History of cardiac catheterization History of esophagogastroduodenoscopy (EGD) History of colonoscopy S/P wisdom tooth extraction S/P implantation of automatic cardioverter/defibrillator (AICD) Family History Grandmother Myocardial infarction Father Coronary heart disease Mother Anxiety Cancer Hypertension Brother Coronary heart disease Aunt Kidney disease Other No family history of adverse response to anesthesia No family history of bleeding disorder Denies family history of Colon cancer Ovarian cancer Prostate cancer Breast cancer Social History (Updated 05/30/25 @ 11:11 by Hernan Coe) Smoking Status: Never smoker Second Hand Exposure: No; Do You Dip or Chew Tobacco: No; Hx Alcohol Use: Yes Alcohol type: hard liquor Alcohol Intake Frequency: 2-3 x/Week Hx Substance Use: No Preferred Language: Polish Communication Ability: Effective Visual Impairment: No Limitations Hearing Ability: Normal [place] Agent Required: No Beliefs That Will Affect Care: None marital status: Current Living Situation: Spouse current occupational status: employed 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 Feels Safe at Home: Yes Childhood Exposure to Second-Hand Smoke: No Diet: vegan caffeine: Yes (one coffee a day ) during the past year weight has: remained stable Dental Care, Regularly: Yes Physical Activity Frequency: Daily Seatbelt Use: always Sunscreen Use: No Assistive Devices: Glasses Review of Systems Review of Systems: The patient denies chest pain, palpitations, lower extremity swelling, sore throat, fevers, chills, sweats, nausea, vomiting, diarrhea , constipation, abdominal pain, pelvic pain, blood in urine or stool, dysuria, urinary frequency or urgency, memory loss, loss of consciousness, rash, abnormal bruising or bleeding, imbalance, focal weakness, numbness or tingling in arms or legs, generalized arthralgias or myalgias, back or neck pain, or night sweats. The review of systems is otherwise negative other than for that already noted above, and at least 10 systems have been reviewed. Physical Exam Physical Exam: The patient is awake, alert and oriented 3, well developed and well nourished, normocephalic and atraumatic, lying in bed and in no acute distress. HEENT--PERRL, EOMI, mucous membranes and oropharynx mildly dry. Neck--supple. No JVD. No bruits. Thyroid normal, trachea midline, no adenopathy. Heart--normal S1 and S2. No murmurs, rubs or gallops. Lungs--clear bilaterally, no respiratory distress, no accessory muscle use. Abdomen--normal bowel sounds and soft. Nontender. Nondistended. Obese Extremities--no cyanosis or clubbing. No edema. Dermatologic--normal skin turgor, normal color, no abnormal lymph nodes, no rash. Neurologic--cranial nerves II through XII grossly intact. Rheumatologic--normal range of motion. Psychiatric--normal affect. Results & Data Results & Data Vital Signs (Past 12 Hours) Vital Signs Temp Pulse Pulse Resp BP BP Pulse Ox 07/06/25 23:33 20 126/79 97 07/06/25 23:30 126/79 07/06/25 23:03 20 115/79 97 07/06/25 22:24 84 07/06/25 22:24 71 16 141/90 H 99 07/06/25 22:24 99 07/06/25 22:22 74 18 99 07/06/25 22:16 36.8 C 67 18 125/82 98 O2 Del Method 07/06/25 23:33 07/06/25 23:30 07/06/25 23:03 07/06/25 22:24 07/06/25 22:24 Room Air 07/06/25 22:24 Room Air 07/06/25 22:22 Room Air 07/06/25 22:16 Room Air Laboratory Results Laboratory Results WBC 9.21 K/ul (4.8-10.8) 07/06/25 22:35 RBC 4.81 M/uL (4.70-6.10) 07/06/25 22:35 Hgb 15.0 g/dl (14.0-18.0) 07/06/25 22: Hct 45.2 % (42.0-52.0) 07/06/25 22: MCV 94.0 fL (80.0-100.0) 07/06/25 22: MCH 31.2 pg (25.0-34.0) 07/06/25 22: MCHC 33.2 g/dL (32.0-36.0) 07/06/25: RDW Std Deviation 44.5 fL (36.4-46.3) 07/06/25: RDW Coeff of Héctor 13.0 % (11.5-14.5) 07/06/25: Plt Count 125 K/uL (130-400) L 07/06/25: MPV 11.6 fL (9.4-12.4) 07/06/25 22:35 Immature Gran % (Auto) 0.4 % 07/06/25 22: Neut % (Auto) 62.4 % 07/06/25 22: Lymph % (Auto) 24.8 % 07/06/25 22:35 [place] % (Auto) 12.1 % 07/06/25 22:35 Eos % (Auto) 0.0 % 07/06/25: Baso % (Auto) 0.3 % 07/06/25: Neut # (Auto) 5.75 K/uL (1.40-6.50) 07/06/25 22:35 Lymph # (Auto) 2.28 K/uL (1.20-3.40) 07/06/25 22:35 [place] # (Auto) 1.11 K/uL (0.11-0.59) H 07/06/25 22:35 Eos # (Auto) 0.00 K/uL (0.00-0.50) 07/06/25 22:35 Baso # (Auto) 0.03 K/uL (0.00-0.20) 07/06/25 22:35 Immature Gran # (Auto) 0.04 K/uL (0.01-0.20) 07/06/25 22:35 PT 10.2 Seconds (9.0-12.0) 07/06/25 22:35 INR 0.9 (0.9-1.1) 07/06/25 22:35 APTT 27 Seconds (21-31) 07/06/25 22:35 PTT Ratio 1.0 07/06/25 22:35 Sodium 136 mmol/L (136-145) 07/06/25 22:35 Potassium 3.8 mmol/L (3.5-5.1) 07/06/25 22:35 Chloride 103 mmol/L (98-107) 07/06/25 22:35 Carbon Dioxide 26 mmol/L (21-32) 07/06/25 22:35 Anion Gap 7 (3-11) 07/06/25 22:35 BUN 16 mg/dl (6-23) 07/06/25 22:35 Creatinine 1.18 mg/dl (0.6-1.4) 07/06/25 22:35 Est Cr Clr Drug Dosing 83.0 ml/min 07/06/25 22:35 eGFR 71.53 07/06/25 22:35 BUN/Creatinine Ratio 13.6 (10-20) 07/06/25 22:35 Glucose 93 mg/dl (70-99(Fasting)) 07/06/25 22:35 Calcium 8.8 mg/dl (8.6-10.3) 07/06/25 22:35 Magnesium 2.1 mg/dl (1.7-2.4) 07/06/25 22:35 Total Bilirubin 0.5 mg/dl (0.2-1.0) 07/06/25 22:35 AST 17 U/L (13-39) 07/06/25 22:35 ALT 11 U/L (7-52) 07/06/25 22:35 Alkaline Phosphatase 114 U/L (34-104) H 08/15/25 22:35 Troponin I High Sens 16.6 pg/ml (0-20) 07/06/25 22:35 Total Protein 6.6 gm/dl (6.0-8.3) 07/06/25 22:35 Albumin 3.8 gm/dl (3.4-5.0) 07/06/25 22:35 Globulin 2.8 gm/dl (2.5-4.0) 07/06/25 22:35 Albumin/Globulin Ratio 1.4 (0.9-2) 07/06/25 22:35 Lipase 47 U/L (11-82) 07/06/25 22:35 Impressions Chest X-Ray 07/06/25 22:22 Exam(s): XR CXR 1 VIEW EXAM: XR Chest, 1 View CLINICAL HISTORY: Chest pain, nonspecific. TECHNIQUE: Frontal view of the chest. COMPARISON: 09/13/2024 FINDINGS: Lungs: No focal airspace consolidation. The pulmonary vasculature demonstrates no significant radiographic abnormality. Pleural space: Unremarkable. No pneumothorax. No large pleural effusion. Heart: Cardiomegaly. Stable postsurgical changes. Mediastinum: The mediastinal contours are stable. The trachea is midline. Bones/joints: The sternal hardware appears maintained. No acute fracture. Tubes, lines and devices: Left subclavian central venous catheter tip in the approach dual chamber defibrillator pacer superior vena cava. IMPRESSION: Stable cardiomegaly with postoperative changes and defibrillator pacer leads. No focal airspace consolidation. No radiographic evidence for florid CHF. Electronically signed by: Sloan Ortega MD 07/07/25 01:00 AM Code Status & VTE Plan Code Status Full code VTE Prophylaxis Plan VTE Prophylaxis will be ordered: Yes PG Care Time/CCT Total # of Minutes Spent Total Time Spent with Patient: Total time spent is greater than 50% in coordination of care (as documented) at patient's floor/unit and/or counseling patient: Coding Level of Care Code 03494 INT INP/OBS CARE 3/75MIN Diagnoses Ventricular fibrillation I49.01 ICD (implantable cardioverter-defibrillator) discharge Z45.02 NSVT (nonsustained ventricular tachycardia) I47.29 Ischemic cardiomyopathy I25.5
--- NOTE | 2025-07-07 01:01 | XRay Report ---
Exam(s): XR CXR 1 VIEW EXAM: XR Chest, 1 View CLINICAL HISTORY: Chest pain, nonspecific. TECHNIQUE: Frontal view of the chest. COMPARISON: 09/13/2024 FINDINGS: Lungs: No focal airspace consolidation. The pulmonary vasculature demonstrates no significant radiographic abnormality. Pleural space: Unremarkable. No pneumothorax. No large pleural effusion. Heart: Cardiomegaly. Stable postsurgical changes. Mediastinum: The mediastinal contours are stable. The trachea is midline. Bones/joints: The sternal hardware appears maintained. No acute fracture. Tubes, lines and devices: Left subclavian central venous catheter tip in the approach dual chamber defibrillator pacer superior vena cava. IMPRESSION: Stable cardiomegaly with postoperative changes and defibrillator pacer leads. No focal airspace consolidation. No radiographic evidence for florid CHF. Electronically signed by: Sloan Ortega MD 07/07/25 01:00 AM
[2025-07-07] MEDS: POTASSIUM CHLORIDE CRTAB 20 MEQ TABCR PO STA (01:12)
[2025-07-07] MEDS ORDERED: ALBUTEROL HFA 8 GM INHALER INH PRN (01:38)
[2025-07-07] MEDS ORDERED: ACETAMINOPHEN 325 MG TAB PO PRN (01:38)
--- NOTE | 2025-07-07 04:07 | Billing Data ---
Date of Service July 07, 2025 Coding Level of Care Code 24766 INT INP/OBS CARE
[2025-07-07 06:07] LABS: Hematocrit (blood only) 42.8 % (42.0-52.0); Hemoglobin 14.2 g/dl (14.0-18.0); Immature Granulocytes # (auto) 0.01 K/uL (0.01-0.20); Immature Granulocytes % (auto) 0.2 %; Mean Corpuscular Hemoglobin 31.1 pg (25.0-34.0); Mean Corpuscular Volume 93.7 fL (80.0-100.0); Platelet Count 100 K/uL (130-400); RDW Standard Deviation 44.7 fL (36.4-46.3); Red Blood Count 4.57 M/uL (4.70-6.10); White Blood Count 6.48 K/ul (4.8-10.8)
[2025-07-07 06:22] LABS: Anion Gap 4.0 (3-11); Blood Urea Nitrogen 12.0 mg/dl (6-23); Calcium 8.4 mg/dl (8.6-10.3); Carbon Dioxide 28.0 mmol/L (21-32); Chloride 107.0 mmol/L (98-107); Creatinine Clr Calc Pharmacy 95.0 ml/min; Glucose 93.0 mg/dl (70-99(Fasting)); Potassium 4.3 mmol/L (3.5-5.1); Sodium 139.0 mmol/L (136-145)
[2025-07-07] MEDS: EMPAGLIFLOZIN 10 MG TAB PO SCH (09:26)
[2025-07-07] MEDS: ASPIRIN 81 MG ECTAB PO SCH (09:26)
[2025-07-07] MEDS: SPIRONOLACTONE 25 MG TAB PO SCH (09:27)
[2025-07-07] MEDS: FLUTICASONE/VILANTEROL 200/25MCG 14 PUFFS/INHALER INH SCH (09:27)
--- NOTE | 2025-07-07 10:05 | Cardiology Consultation ---
Date of Consultation July 07, 2025 Assessment & Plan (1) ICD (implantable cardioverter-defibrillator) discharge: (2) Ischemic cardiomyopathy: Plan 1. ICD shock: It sounds as though he had an appropriate ICD shock and records from the emergency room suggest that. Unfortunately the interrogation is not on his chart and not available in his electronic record so I cannot review it, I will be able to do that in the future but it sounds like the programming was appropriate. With a single appropriate ICD shock and no ventricular arrhythmia identified on telemetry I would not treat with an antiarrhythmic, it is possible that something changed in his substrate and he will now have difficulty with ventricular arrhythmias but is also possible that he will not so I would not treat him for arrhythmias at this time. From my standpoint he can go home. 2. Cardiomyopathy: He has an ischemic cardiomyopathy, he had an ICD in for primary prevention and it worked appropriately to terminate this episode of ventricular tachycardia. I would continue our current management (ideally he would be on a beta-sonia but he has not tolerated them in the past and we have tried several times). 3. Elevated troponin: He had minimal elevation of his high-sensitivity troponin, it is consistent with his ventricular arrhythmia and ICD shock and I would not look for an ischemic cause. He has known coronary artery disease but no symptoms to suggest significant progression and therefore no clear indication for evaluation for ischemia unless he would have further difficulty with ventricular tachycardia. He has an appointment in our office for July 30, I am going to leave that in place and that should be sufficient. History of Present Illness Reason for Consultation: Appropriate ICD shock Attending Physician: Gisell Urias MD History of Present Illness This is a 59-year-old male with a history of coronary artery disease who is primarily followed by Dr. Stauffer. He had severe left ventricular dysfunction and initially had an attempt at implanting a biventricular ICD, this was done at [facility] on December 14, 2005. At that time it is noted that his coronary sinus system did not have branches large enough to accommodate a pacing lead. A single-chamber ICD was therefore placed using a Guidant model 0185 lead. That device was replaced with another [employer] single-chamber ICD on July 16, 2010. His ICD reached recommended replacement time January 23, 2024 and his el ectrocardiogram from January 26, 2024 showed bifascicular block with a QRS duration of 158 ms. An echocardiogram done January 26, 2024 showed severe left ventricular dysfunction with an ejection fraction of 20 to 25%, similar to prior studies years before. An echocardiogram July 20, 2024 showed moderate to severe left ventricular dysfunction with an ejection fraction of 25 to 30%. Similar to April 2024. He was having a lot of premature ventricular beats and a Holter monitor done from January 26, 2024 through January 31, 2024 showed 19% premature reticular beats with a 12-beat run of nonsustained ventricular tachycardia. His ICD reached replacement time in 2023, however we wanted to try to optimize his medical therapy and see whether we could improve his left ventricular function (which we were not been able to) prior to replacing the device since upgrading to a biventricular ICD was a consideration. He was unable to tolerate beta-blockade due to severe side effects and he was unable to tolerate Entresto due to side effects as well, and therefore he remained on low-dose lisinopril and low-dose metoprolol succinate. He was able to tolerate spironolactone and Jardiance but his left ventricular function did not improve substantially, by echocardiography July 20, 2024 his ejection fraction was 25 to 30%. Although the indications were borderline for biventricular pacing but there was little else that we could do and his device needed to be replaced in any case I did upgrade his device to a biventricular ICD on September 12, 2024. Access was somewhat difficult but there were no complications, the left ventricular lead was placed in a somewhat low-lying but reasonably good position although diaphragmatic pacing was present using distal electrodes. The atrial lead was placed without difficulty. He was discharged the following day. At his visit December 25, 2024 he was not appropriately biventricular pacing as much as we would like (about 80%), part of it appeared to be that the device was attempting to collect templates for VT recognition and perhaps due to frequent premature ventricular beats prolonging this process and this might have interfered with biventricular pacing. We therefore turned off the template collection for ventricular morphology and we also adjusted his VT detection zone which may have inaccurately identified ventricular arrhythmias. An echocardiogram done March 13, 2025 shows moderate to severe left ventricular dysfunction with an ejection fraction of 25 to 30% and not significantly changed from July 20, 2024. He presented to the emergency room July 06, 2025 with an ICD shock. He was walking to his car after having dinner and seeing a show, he was somewhat lightheadedness and dizzy and then received the shock. ICD interrogation identified an appropriate shock occurring at 2109 on July 06, 2025. I reviewed his symptoms with him, he describes feeling very lightheaded and presyncopal but not losing consciousness, he was near a wall and he felt as though he might fall over and then he saw bright light and received the shock. This sounds appropriate clinically. Since admission he has felt well with no further symptoms. He felt a little funny for perhaps an hour afterwards but no specific cardiovascular symptoms. At the time of my evaluation he was walking around in his room feeling well. Allergies Allergy/AdvReac Type Severity Reaction Status Date / Time Sulfa (Sulfonamide Allergy Mild RASH Verified 05/30/25 11:02 Antibiotics) mesalamine [From Asacol] AdvReac Intermediate increased Verified 05/30/25 11:02 stomach problems olsalazine [From Dipentum] AdvReac Intermediate increased Verified 05/30/25 11:02 stomach problems sacubitril [From Entresto] AdvReac Gastrointestinal Verified 05/30/25 11:02 Upset valsartan [From Entresto] AdvReac Gastrointestinal Verified 05/30/25 11:02 Upset Home Medications Medication Instructions Recorded Confirmed Type aspirin 81 mg tablet,delayed 81 mg PO QAM 02/10/19 05/30/25 History release furosemide 40 mg tablet 40 mg PO DAILY PRN edema #90 tabs 08/21/19 05/30/25 Rx albuterol sulfate 90 mcg/actuation 2 puff inhalation .COMPLEX PRN 05/19/23 05/30/25 Rx aerosol inhaler (Ventolin HFA) Shortness Of Breath Or Wheezing #6.7 grams tadalafil 20 mg tablet (Cialis) 20 mg PO DAILY PRN sexual activity 07/04/24 05/30/25 Rx #30 tabs lisinopril 5 mg tablet 5 mg PO QAM #90 tabs 08/03/24 05/30/25 Rx metoprolol succinate 25 mg 12.5 mg (1/2 x 25 mg) PO QPM #45 10/02/24 05/30/25 Rx tablet,extended release 24 hr tabs (Toprol XL) empagliflozin 10 mg tablet 10 mg PO DAILY #90 tabs 10/06/24 05/30/25 Rx (Jardiance) benralizumab 30 mg/mL subcutaneous 30 mg subcut .COMPLEX #1 mL 10/09/24 05/30/25 Rx auto-injector atorvastatin 80 mg tablet 80 mg PO QPM #90 tabs 12/04/24 05/30/25 Rx prednisone 10 mg tablet 5 mg (1/2 x 10 mg) PO DAILY #30 01/04/25 05/30/25 Rx tabs fluticasone propionate 93 See Rx Instructions .Route 01/31/25 05/30/25 Rx mcg/actuation breath activated .COMPLEX PRN Shortness Of Breath aerosol (Xhance) #16 mL mometasone-formoterol HFA 200 2 puff inhalation BID #13 grams 01/31/25 05/30/25 Rx mcg-5 mcg/actuation aerosol inhaler (Dulera) spironolactone 25 mg tablet 25 mg PO DAILY #90 tabs 04/23/25 05/30/25 Rx pantoprazole 40 mg tablet,delayed 40 mg PO QDL #90 tabs 06/25/25 Rx release Patient History Medical History ICD (implantable cardioverter-defibrillator) battery depletion History of colon polyps Presence of stent in artery History of COVID-19 05/08/23 @ [facility]--fever, harsh cough, fatigue--pt states all symptoms have improved (he was on paxlovid) Ischemic cardiomyopathy History of GI bleed History of ulcerative colitis CAD (coronary artery disease) follows with Dr. Stauffer>NEXT APT 12/05/21 Asthma HAS NOT NEEDED INHALER RECENTLY History of myocardial infarction 2000; 2012 History of sleep apnea resolved with wt loss Ulcerative colitis Surgical History S/P CABG (coronary artery bypass graft) S/P CABG x 2 2002>[facility] [place] [facility] [place]unable to recall exact [id number]- no stents [place] [facility] [place] 1 [place] History of esophagogastroduodenoscopy (EGD) History of colonoscopy last 11/2021 @ [facility] S/P wisdom tooth extraction S/P implantation of automatic cardioverter/defibrillator (AICD) placed 2005; replaced 2011; [employer]tronic; follows with Dr. Stauffer Family History Grandmother Myocardial infarction Father Coronary heart disease Mother Anxiety Cancer multiple myeloma Hypertension Brother Coronary heart disease Aunt Kidney disease Other No family history of adverse response to anesthesia No family history of bleeding disorder Denies family history of Colon cancer Ovarian cancer Prostate cancer Breast cancer Social History Smoking Status: Unknown if ever smoked Second Hand Exposure: No; Do You Dip or Chew Tobacco: No; Hx Alcohol Use: No Hx Substance Use: No Preferred Language: [place]agu[place] Communication Ability: Effective Visual Impairment: No Limitations Hearing Ability: Normal 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: No Beliefs That Will Affect Care: None marital status: Current Living Situation: Spouse current occupational status: employed 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 He is up and ambulatory in his room. HEENT: Unremarkable Neck: No jugular venous distention, carotid pulses are normal and equal bilaterally without bruits. Pulmonary: Clear to auscultation bilaterally. Cardiac: Regular rhythm with no murmur, gallop or rub. Abdomen: Soft, nontender with normal bowel sounds. Extremities: No edema. Neurologic: No focal findings. Gait is steady. Skin: The device site is well-healed without erythema, swelling or tenderness. No rash, ecchymoses or petechiae. Results & Data Vital Signs (Past 12 Hours) Vital Signs Temp Pulse Pulse Pulse Resp BP BP 07/07/25 09:44 07/07/25 08:58 36.4 C L 56 L 19 114/72 07/07/25 03:49 36.3 C L 62 18 111/66 07/07/25 03:19 36.3 C L 62 19 111/66 07/07/25 01:38 64 07/07/25 01:38 07/07/25 00:03 12 124/71 07/06/25 23:33 20 126/79 07/06/25 23:30 126/79 07/06/25 23:03 20 115/79 07/06/25 22:24 84 07/06/25 22:24 71 16 141/90 H 07/06/25 22:24 07/06/25 22:22 74 18 07/06/25 22:16 36.8 C 67 18 125/82 Pulse Ox O2 Del Method 07/07/25 09:44 Room Air 07/07/25 08:58 98 Room Air 07/07/25 03:49 98 Room Air 07/07/25 03:19 98 Room Air 07/07/25 01:38 07/07/25 01:38 Room Air 07/07/25 00:03 98 07/06/25 23:33 97 07/06/25 23:30 07/06/25 23:03 97 07/06/25 22:24 07/06/25 22:24 99 Room Air 07/06/25 22:24 99 Room Air 07/06/25 22:22 99 Room Air 07/06/25 22:16 98 Room Air Laboratory Results Cardiac Enzymes 07/06/25 07/07/25 Range/Units 22:35 05:32 AST 17 (13-39) U/L Troponin I High Sens 16.6 35.5 H D (0-20) pg/ml Coagulation 07/06/25 Range/Units 22:35 PT 10.2 (9.0-12.0) Seconds APTT 27 (21-31) Seconds CBC 07/06/25 07/07/25 Range/Units 22:35 05:32 WBC 9.21 6.48 (4.8-10.8) K/ul RBC 4.81 4.57 L (4.70-6.10) M/uL Hgb 15.0 14.2 (14.0-18.0) g/dl Hct 45.2 42.8 (42.0-52.0) % Plt Count 125 L 100 L (130-400) K/uL Neut # (Auto) 5.75 3.96 (1.40-6.50) K/uL Lymph # (Auto) 2.28 1.81 (1.20-3.40) K/uL [place] # (Auto) 1.11 H 0.68 H (0.11-0.59) K/uL Eos # (Auto) 0.00 0.00 (0.00-0.50) K/uL Baso # (Auto) 0.03 0.02 (0.00-0.20) K/uL Comprehensive Metabolic Panel 07/06/25 07/07/25 Range/Units 22:35 05:32 Sodium 136 139 (136-145) mmol/L Potassium 3.8 4.3 (3.5-5.1) mmol/L Chloride 103 107 (98-107) mmol/L Carbon Dioxide 26 28 (21-32) mmol/L BUN 16 12 (6-23) mg/dl Creatinine 1.18 1.03 (0.6-1.4) mg/dl Glucose 93 93 (70-99(Fasting)) mg/dl Calcium 8.8 8.4 L (8.6-10.3) mg/dl AST 17 (13-39) U/L ALT 11 (7-52) U/L Alkaline Phosphatase 114 H (34-104) U/L Total Protein 6.6 (6.0-8.3) gm/dl Albumin 3.8 3.4 (3.4-5.0) gm/dl Intake and Output 07/06/25 07/07/25 07/07/25 22:59 06:59 14:59 Intake Total 240 / 240 Balance 240 / 240 Intake: Oral 240 / 240 Other: # Unmeasured Voids 1 Weight 105.4 kg 105.5 kg Weight Measurement Method Built [facility] Diagnostic Findings Telemetry: Ventricular pacing in the 60s, no ventricular arrhythmias of significance noted. PG Care Time/CCT Total # of Minutes Spent Total Time Spent with Patient: Total time spent is greater than 50% in coordination of care (as documented) at patient's floor/unit and/or counseling patient: Coding Level of Care Code 28521 INT INP/OBS CARE 3/75MIN Diagnoses ICD (implantable cardioverter-defibrillator) discharge Z45.02 Ischemic cardiomyopathy I25.5
[2025-07-07 12:01] VITALS: RESP 17; TEMP 98.8; O2SAT 97
--- NOTE | 2025-07-07 13:30 | Electrocardiogram Report ---
Test Reason : Blood Pressure : */* mmHG Vent. Rate : 71 BPM Atrial Rate : 71 BPM P-R Int : 136 ms QRS Dur : 140 ms QT Int : 396 ms P-R-T Axes : 62 -85 100 degrees QTcB Int : 430 ms Atrial-sensed ventricular-paced rhythm with Premature ventricular complexes Biventricular pacemaker detected Abnormal ECG When compared with ECG of 12-Sep-2024 16:08, Premature ventricular complexes are now Present Vent. rate has increased by 7 bpm Confirmed by Harshal Anders ([id number]) on 07/07/2025 1:30:04 PM Referred By: REFERRED SELF Confirmed By: Hrashal Anders
--- NOTE | 2025-07-07 15:58 | Discharge Summary ---
Discharge Summary Date of Service July 07, 2025 Principal Dx & Hospital Course #1 = Principal Diagnosis (1) Ventricular fibrillation: (2) ICD (implantable cardioverter-defibrillator) discharge: (3) NSVT (nonsustained ventricular tachycardia): (4) Ischemic cardiomyopathy: Plan The patient is a 59-year-old male with a past medical history including bifascicular bundle branch block, nonsustained ventricular tachycardia, CAD, asthma, ischemic cardiomyopathy, ICD in place, GERD, severe persistent eosinophilic asthma, hypertension, hypercholesterolemia, and chronic systolic heart failure. He reports that as he and his were walking from dinner earlier this evening, shortly after 10:00, he started to feel lightheaded, dizzy and was doing some deep breathing, as he had several times before, and then was shocked by his ICD. After that he felt generally weak and fatigued, and his brought him to the emergency department for assessment. In the emergency department [employer] was consulted, and reports that the patient had an episode of ventricular fibrillation, that was shocked at 21:09. He underwent routine laboratories, had a normal chest x-ray, and [facility] Dr. Anders was consulted by the ED, and felt that antiarrhythmic such amiodarone were not indicated, and patient was then admitted to the PCU. Ventricular fibrillation/status post ICD discharge- The patient will be admitted to telemetry for serial cardiac enzymes, serial EKG's, cardiac rhythm monitoring Most recent echocardiogram from 03/13/2025 showed ejection fraction of 25-30%, with akinetic apex, and other leblanc hypokinetic, with no significant change compared to 07/20/2024 Troponin 16.6, will be followed serially Continue aspirin, Jardiance, lisinopril, metoprolol succinate, spironolactone and furosemide For a potassium of 3.8, patient was given Klor-Con 40 mill equivalents p.o. Magnesium level was normal at 2.1 Follow serial CBC with differential, renal function panel, magnesium and troponin Cardiology recs appreciated: given single event with appropriate ICD firing, recommends holding off on starting antiarrhythmics at this time. Pt has follow up appointment on Jul 30 with cards. pt is cleared for discharge from cardiology standpoint. pt is discharged home Asthma- Continue routine inhalers Hyperlipidemia- Continue atorvastatin GERD- Continue pantoprazole Chronic prednisone use- Continue 5 mg daily, no need for stress dosing at this time Admission HPI Per Admitting Provider The patient is a 59-year-old male with a past medical history including bifascicular bundle branch block, nonsustained ventricular tachycardia, CAD, asthma, ischemic cardiomyopathy, ICD in place, GERD, severe persistent eosinophilic asthma, hypertension, hypercholesterolemia, and chronic systolic heart failure. He reports that as he and his were walking from dinner earlier this evening, shortly after 10:00, he started to feel lightheaded, dizzy and was doing some deep breathing, as he had several times before, and then was shocked by his ICD. After that he felt generally weak and fatigued, and his brought him to the emergency department for assessment. In the emergency department [employer] was consulted, and reports that the patient had an episode of ventricular fibrillation, that was shocked at 21:09. He underwent routine laboratories, had a normal chest x-ray, and was [facility] Dr. Anders was consulted by the ED, and felt that antiarrhythmic such amiodarone were not indicated, and patient was then admitted to the PCU. Discharge Exam Gen: no acute distress, lying in bed comfortable HEENT: NC/AT, MMM Lungs: nonlabored breathing, CTAB CVS: s1s2nl, RRR Abd: nl bowel sounds, soft, NT / ND : no santana Ext: no edema Neuro: AAOx3 Psych: calm cooperative Discharge Plan Discharge Items Patient Disposition: Home - Self-Care Reason For Visit: VF, S/P ICD FIRING Discharge Diagnosis: VF s/p ICD firing Condition on Discharge: Good Activity: Resume your previous activity Non-emergency contact: Primary Care Provider and Automatic Lathe Operator Call non-emergency contact if: you have any medication questions and your symptoms worsen Follow-up/Referrals: Mahesh Herron III, CRNP [Primary Care Provider] - Diet: Heart Healthy and Vegan (no animal product) Addtl Attending Provider Instructions: Follow up with PCP in 7 to 10 days Pending Studies at Discharge: No Stand-Alone Forms: My [facility], Smoking Cessation Medications and DC Order Prescriptions: Continued furosemide 40 mg tablet 40 mg PO DAILY PRN (Reason: edema) Qty: 90 1RF tadalafil [Cialis] 20 mg tablet 20 mg PO DAILY PRN (Reason: sexual activity) Qty: 30 11RF Rx Instructions: administer approximately 30min before sexual activity; do not use more than 1 dose per 24hrs lisinopril 5 mg tablet 5 mg PO QAM Qty: 90 3RF metoprolol succinate [Toprol XL] 25 mg tablet extended release 24 hr 12.5 mg PO QPM Qty: 45 3RF Jardiance 10 mg tablet 10 mg PO DAILY Qty: 90 3RF benralizumab 30 mg/mL auto-injector 30 mg subcut .COMPLEX Qty: 1 9RF Rx Instructions: INJECT 30MG SC EVERY 8 WEEKS APPROVED for Pen Injector only for Home Administration GOOD 10/06/24-10/07/25 atorvastatin 80 mg tablet 80 mg PO QPM Qty: 90 3RF prednisone 10 mg tablet 5 mg PO DAILY Qty: 30 6RF spironolactone 25 mg tablet 25 mg PO DAILY Qty: 90 3RF pantoprazole 40 mg tablet,delayed release (DR/EC) 40 mg PO QDL Qty: 90 3RF albuterol sulfate [Ventolin HFA] 90 mcg/actuation HFA aerosol inhaler 2 puff Inhalation .COMPLEX PRN (Reason: Shortness Of Breath Or Wheezing) Qty: 6.7 3RF Rx Instructions: 2 puffs inhalation every 4-6 hours PRN; Xhance 93 mcg/actuation aerosol breath activated See Rx Instructions .ROUTE .COMPLEX PRN (Reason: Shortness Of Breath) Qty: 16 11RF Dose Instruction: SPRAY 1 SPRAY INTO EACH NOSTRIL TWO TIMES DAILY Rx Instructions: SPRAY 1 SPRAY INTO EACH NOSTRIL TWO TIMES DAILY PRN; Dulera 200-5 mcg/actuation HFA aerosol inhaler 2 puff INH BID Qty: 13 11RF aspirin 81 mg Tablet,Delayed Release (Dr/Ec) 81 mg PO QAM Discharge Orders: Discharge Order (Routine); Ordered 07/07/25 Ordered By: Gisell Urias Admission Data Admit Date/Time: 07/07/25 00:40 Attending Provider: Gisell Urias Admit Provider: Asif Lopes Primary Care Provider: Mahesh Herron III Other Providers: Asif Lopes; Harshal Anders Hospital Stay Data Consultations 07/07/25 00:04 ED Decision to Admit Stat 07/07/25 01:38 Consult Cardiology Routine Discharge Instructions Given to Patient (Per Discharging Provider) Follow up with PCP in 7 to 10 days Total Time Total Time Spent Total Time Spent (In Minutes): 60 Coding Level of Care Code 23696 INP/OBS DISCH >30 MIN Diagnoses Ventricular fibrillation I49.01 ICD (implantable cardioverter-defibrillator) discharge Z45.02 NSVT (nonsustained ventricular tachycardia) I47.29 Ischemic cardiomyopathy I25.5
[2025-07-07 16:13] VITALS: BP 114/72; PULSE 62
[2025-07-07] MEDS ORDERED: ATORVASTATIN 40 MG TAB PO SCH (21:00)
[2025-07-07] MEDS ORDERED: METOPROLOL SUCC 25MG EXT REL TAB PO SCH (21:00)
== END 2025-07-07 16:58 | disposition home or self-care (01) | DRG 309 ==
LOC: ED 22:15 → SUATTDRO 07-07 00:40 → 4W 07-07 00:40

== ENCOUNTER 2025-10-04 16:07 | Observation (INO) ==
[2025-10-04 16:43] LABS: Hematocrit (blood only) 49.0 % (42.0-52.0); Hemoglobin 16.6 g/dL (14.0-18.0); Immature Granulocytes # (auto) 0.06 K/uL (0.01-0.20); Immature Granulocytes % (auto) 0.6 %; Mean Corpuscular Hemoglobin 32.3 pg (25.0-34.0); Mean Corpuscular Volume 95.3 fL (80.0-100.0); Platelet Count 163 K/uL (130-400); RDW Standard Deviation 49.4 fL (36.4-46.3); Red Blood Count 5.14 M/uL (4.70-6.10); White Blood Count 9.90 K/ul (4.8-10.8)
[2025-10-04] MEDS: ASPIRIN CHEW 324 MG PO STA (16:45)
[2025-10-04 17:02] LABS: Anion Gap 10 (3-11); Blood Urea Nitrogen 18 mg/dl (6-23); Calcium 9.7 mg/dl (8.6-10.3); Carbon Dioxide 27 mmol/L (21-32); Chloride 98 mmol/L (98-107); Glucose 112 mg/dl (70-99(Fasting)); Lipase 37 U/L (11-82); Magnesium 2.2 mg/dl (1.7-2.4); Potassium 4.6 mmol/L (3.5-5.1); Sodium 135 mmol/L (136-145)
[2025-10-04 17:11] LABS: INR 1.0 (0.9-1.1); Partial Thromboplastin Time 25 Seconds (21-31); Prothrombin Time 10.9 Seconds (9.0-12.0)
--- NOTE | 2025-10-04 17:35 | Emergency Department Note ---
History of Present Illness General Chief Complaint: Cardiac Assessment Stated Complaint: ILLNESS, CARDIAC ASSESSMENT Time Seen by Provider: 10/04/25 16:21 History of Present Illness Provider Complaint: + palpitations Onset (ago): 2 day(s) Duration: + Intermittent Severity: similar to previous episodes Maximum Pain Intensity: 2 Context: + occurred during rest Arrhythmia history: + pacemaker Associated symptoms: + shortness of breath and + near-syncope; no chest pain, no syncope, no nausea, no vomiting or no cough Home Medications Medication Instructions Recorded Confirmed Type aspirin 81 mg tablet,delayed 81 mg PO QAM 02/10/19 10/04/25 History release furosemide 40 mg tablet 40 mg PO DAILY PRN edema #90 tabs 08/21/19 10/04/25 Rx albuterol sulfate 90 mcg/actuation 2 puff inhalation .COMPLEX PRN 05/19/23 10/04/25 Rx aerosol inhaler (Ventolin HFA) Shortness Of Breath Or Wheezing #6.7 grams tadalafil 20 mg tablet (Cialis) 20 mg PO DAILY PRN sexual activity 07/04/24 10/04/25 Rx #30 tabs empagliflozin 10 mg tablet 10 mg PO DAILY #90 tabs 10/06/24 10/04/25 Rx (Jardiance) benralizumab 30 mg/mL subcutaneous 30 mg subcut .COMPLEX #1 mL 10/09/24 10/04/25 Rx auto-injector atorvastatin 80 mg tablet 80 mg PO QPM #90 tabs 12/04/24 10/04/25 Rx fluticasone propionate 93 1 spray intranasal BID PRN 07/07/25 10/04/25 History mcg/actuation breath activated Shortness Of Breath aerosol (Xhance) lisinopril 5 mg tablet 5 mg PO QAM #90 tabs 07/17/25 10/04/25 Rx lorazepam 0.5 mg tablet (Ativan) 0.5 mg PO HS PRN sleep #20 tabs 10/02/25 10/04/25 Rx amiodarone 200 mg tablet 200 mg PO BID 10/04/25 10/04/25 History magnesium 200 mg tablet 250 mg PO DAILY 10/04/25 10/04/25 History metoprolol succinate 25 mg 12.5 mg PO QPM 10/04/25 10/04/25 History tablet,extended release 24 hr mometasone-formoterol HFA 200 2 puff inhalation BID PRN 10/04/25 10/04/25 History mcg-5 mcg/actuation aerosol Shortness Of Breath Or Wheezing inhaler (Dulera) multivitamin 1 tab PO DAILY 10/04/25 10/04/25 History pantoprazole 40 mg tablet,delayed 40 mg PO QPM 10/04/25 10/04/25 History release potassium chloride 20 mEq 20 meq PO DAILY 10/04/25 10/04/25 History tablet,extended release prednisone 10 mg tablet 5 mg PO QPM 10/04/25 10/04/25 History spironolactone 25 mg tablet 25 mg PO QPM 10/04/25 10/04/25 History Allergies Allergy/AdvReac Type Severity Reaction Status Date / Time Sulfa (Sulfonamide Allergy Mild RASH Verified 10/04/25 19:37 Antibiotics) mesalamine [From Asacol] AdvReac Intermediate increased Verified 10/04/25 19:37 stomach problems olsalazine [From Dipentum] AdvReac Intermediate increased Verified 10/04/25 19:37 stomach problems sacubitril [From Entresto] AdvReac Gastrointestinal Verified 10/04/25 19:37 Upset valsartan [From Entresto] AdvReac Gastrointestinal Verified 10/04/25 19:37 Upset Past Med/Surg History Problem List (Updated 10/04/25 @ 22:19 by Florentino Verduzco MD) Elevated troponin I level (Acute) Heart palpitations (Acute) Ventricular tachycardia (Acute) ICD (implantable cardioverter-defibrillator) discharge (Acute) Ventricular fibrillation (Acute) Bifascicular bundle branch block NSVT (nonsustained ventricular tachycardia) Coronary atherosclerosis of [place] coronary vessel (09/18/11) Asthma (09/18/11) Ischemic cardiomyopathy (Acute) ICD (implantable cardioverter-defibrillator) in place Esophageal reflux Severe persistent asthma (Chronic) Allergic rhinitis (Chronic) Eosinophilic asthma (Chronic) Plantar fasciitis Dysphagia Hypertension Hypercholesterolemia Chronic systolic (congestive) heart failure Chronic sinusitis of both maxillary sinuses (Chronic) Medical History ICD (implantable cardioverter-defibrillator) battery depletion History of colon polyps Presence of stent in artery History of COVID-19 05/08/23 @ [facility]--fever, harsh cough, fatigue--pt states all symptoms have improved (he was on paxlovid) Ischemic cardiomyopathy History of GI bleed History of ulcerative colitis CAD (coronary artery disease) follows with Dr. Stauffer>NEXT APT 12/05/21 Asthma HAS NOT NEEDED INHALER RECENTLY History of myocardial infarction 2000; 2012 History of sleep apnea resolved with wt loss Ulcerative colitis Surgical History S/P CABG (coronary artery bypass graft) S/P CABG x 2 2002>[id number] History of cardiac catheterization [place] [facility] [place] mult stents (unable to recall exact [id number] no stents 2002 [facility] [place] CABG 2012 [place] - [place] - 1 stent History of esophagogastroduodenoscopy (EGD) History of colonoscopy last 11/2021 @ [facility] S/P wisdom tooth extraction S/P implantation of automatic cardioverter/defibrillator (AICD) placed 2005; replaced 2011; medtronic; follows with Dr. Stauffer Family History Grandmother Myocardial infarction Father Coronary heart disease Mother Anxiety Cancer multiple myeloma Hypertension Brother Coronary heart disease Aunt Kidney disease Other No family history of adverse response to anesthesia No family history of bleeding disorder Denies family history of Colon cancer Ovarian cancer Prostate cancer Breast cancer Social History Smoking Status: Never smoker Tobacco Type: Pipe (twice a year ) Second Hand Exposure: No; Do You Dip or Chew Tobacco: No; Hx Alcohol Use: No Hx Substance Use: No Preferred Language: Andorran Communication Ability: Effective Visual Impairment: No Limitations Hearing Ability: Normal 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 Technician Required: No Beliefs That Will Affect Care: None marital status: Current Living Situation: Spouse current occupational status: employed 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 Feels Safe at Home: Yes Childhood Exposure to Second-Hand Smoke: No Diet: vegan caffeine: Yes (one coffee a day ) during the past year weight has: remained stable Dental Care, Regularly: Yes Physical Activity Frequency: Daily Seatbelt Use: always Sunscreen Use: No Assistive Devices: Glasses Physical Exam 2 Vital Signs: Vital Signs - 24 hr 10/04/25 16:13 10/04/25 16:26 10/04/25 16:27 Temperature 36.8 C Temperature Source Temporal Artery Sc an Pulse Rate 61 60 Pulse Rate [Right Brachial] Pulse Rate from Sp O2 Sensor Pulse Rhythm Regular Pulse Rhythm [Righ t Brachial] Pulse Strength [Ri ght Brachial] Respiratory Rate 17 17 Respiratory Effort / Characteristics Non-Labored Sponta neous Respiratory Depth Normal Respiratory Patter n Regular Blood Pressure 108/66 112/79 Blood Pressure [Ri ght Arm] Blood Pressure Carmelita n 80 90 Blood Pressure Carmelita n [Right Arm] Blood Pressure Pos ition [Right Arm] Pulse Oximetry 99 99 Oxygen Delivery Me thod Room Air Room Air Sepsis Recent Feve r Within 48 Hours No Sepsis New/Unexpla ined Change in Men dee Status N/A Sepsis Action Take n by Nursing No Action Required 10/04/25 16:30 10/04/25 17:00 10/04/25 17:30 Temperature Temperature Source Pulse Rate 60 60 61 Pulse Rate [Right Brachial] Pulse Rate from Sp O2 Sensor 60 60 Pulse Rhythm Pulse Rhythm [Righ t Brachial] Pulse Strength [Ri ght Brachial] Respiratory Rate 21 17 Respiratory Effort / Characteristics Respiratory Depth Respiratory Patter n Blood Pressure 104/62 94/62 L Blood Pressure [Ri ght Arm] Blood Pressure Carmelita n 76 72 Blood Pressure Carmelita n [Right Arm] Blood Pressure Pos ition [Right Arm] Pulse Oximetry 97 97 Oxygen Delivery Me thod Sepsis Recent Feve r Within 48 Hours Sepsis New/Unexpla ined Change in Men dee Status Sepsis Action Take n by Nursing 10/04/25 18:00 10/04/25 18:00 10/04/25 19:00 Temperature Temperature Source Pulse Rate 61 60 61 Pulse Rate [Right Brachial] Pulse Rate from Sp O2 Sensor 60 60 60 Pulse Rhythm Pulse Rhythm [Righ t Brachial] Pulse Strength [Ri ght Brachial] Respiratory Rate 13 18 12 Respiratory Effort / Characteristics Respiratory Depth Respiratory Patter n Blood Pressure 104/60 103/60 96/66 L Blood Pressure [Ri ght Arm] Blood Pressure Carmelita n 74 74 75 Blood Pressure Carmelita n [Right Arm] Blood Pressure Pos ition [Right Arm] Pulse Oximetry 94 98 97 Oxygen Delivery Me thod Room Air Room Air Sepsis Recent Feve r Within 48 Hours Sepsis New/Unexpla ined Change in Men dee Status Sepsis Action Take n by Nursing 10/04/25 20:00 10/04/25 20:37 10/04/25 22:00 Temperature Temperature Source Pulse Rate 60 60 Pulse Rate [Right Brachial] 60 Pulse Rate from Sp O2 Sensor Pulse Rhythm Pulse Rhythm [Righ t Brachial] Regular Pulse Strength [Ri ght Brachial] Normal Respiratory Rate 14 18 Respiratory Effort / Characteristics Non-Labored Respiratory Depth Normal Respiratory Patter n Regular Blood Pressure 115/67 Blood Pressure [Ri ght Arm] 121/76 Blood Pressure Carmelita n 83 Blood Pressure Carmelita n [Right Arm] 91 Blood Pressure Pos ition [Right Arm] Sitting Pulse Oximetry 96 98 Oxygen Delivery Me thod Room Air Room Air Sepsis Recent Feve r Within 48 Hours Sepsis New/Unexpla ined Change in Men dee Status Sepsis Action Take n by Nursing Physical Exam: Physical Exam GENERAL: oriented to person, place, and time. appears well-developed and well- nourished. HENT: Exam performed. - Head: Normocephalic and atraumatic. EYES: Conjunctivae and EOM are normal. Right eye exhibits no discharge. Left eye exhibits no discharge. No scleral icterus. NECK: Normal range of motion. Neck supple. No JVD present. CV: Normal rate, regular rhythm, normal heart sounds and intact distal pulses. There is no peripheral edema. Palpable radial pulses bue. PULM/CHEST: Effort normal and breath sounds normal. No respiratory distress. No stridor. no wheezes. no rales. ABD: The abdomen is soft. There is no tenderness. NEURO: Motor and sensation grossly intact. SKIN: Skin is warm and dry. He is not diaphoretic. PSYCH: normal mood and affect. Behavior is normal. Judgment and thought content normal. Course Course 1621: The patient was evaluated in room C2. A complete history and physical exam was performed Cardiac monitoring: An order was placed for continuous cardiac monitoring. The monitor shows a rate of 60 with paced rhythm interpreted by me 1840: Vital signs stable. Labs are unremarkable with the exception of an elevated high-sensitivity troponin of 94, elevated from his troponin 2 days ago of 79.5. Discussed case with on-call [facility] cardiology Dr. Bauer. Both he and I feel the patient should be admitted and be evaluated by cardiology tomorrow morning. Patient is in agreement. Administered Medications Discontinued Medications Aspirin (Aspirin Chew 324 Mg) 324 mg PO NOW STA Stop: 10/04/25 16:28 Last Admin: 10/04/25 16:45 Dose: 324 mg Documented By: ABDIFATAH Nitroglycerin (Nitroglycerin 2% Ointment 30gm Tube) 0.5 inch EXT NOW STA Stop: 10/04/25 19:21 Last Admin: 10/04/25 20:26 Dose: Not Given Documented By: ADELSO Medical Decision Making Medical Records Attestation: I reviewed the patient's medical records. Medical records reviewed. Patient was seen in the emergency department 2 days ago. Patient was found to be in a wide-complex tachycardia and was hypotensive. Patient was given fluid bolus and then his semiconductor engineer was contacted and changes were made to his settings which brought the patient back into a sinus rhythm. Patient was discharged in stable condition. Laboratory Data Attestation: I reviewed the patient's lab results. 10/04/25 16:23 10/04/25 16:23 Lab Results 10/04/25 10/04/25 Range/Units 16:23 18:07 WBC 9.90 (4.8-10.8) K/ul RBC 5.14 (4.70-6.10) M/uL Hgb 16.6 (14.0-18.0) g/dL Hct 49.0 (42.0-52.0) % MCV 95.3 (80.0-100.0) fL MCH 32.3 (25.0-34.0) pg MCHC 33.9 (32.0-36.0) g/dL RDW Std Deviation 49.4 H (36.4-46.3) fL RDW Coeff of Héctor 14.1 (11.5-14.5) % Plt Count 163 (130-400) K/uL MPV 11.8 (9.4-12.4) fL Immature Gran % (Auto) 0.6 % Neut % (Auto) 85.3 % Lymph % (Auto) 6.2 % [place] % (Auto) 7.6 % Eos % (Auto) 0.0 % Baso % (Auto) 0.3 % Neut # (Auto) 8.45 H (1.40-6.50) K/uL Lymph # (Auto) 0.61 L (1.20-3.40) K/uL [place] # (Auto) 0.75 H (0.11-0.59) K/uL Eos # (Auto) 0.00 (0.00-0.50) K/uL Baso # (Auto) 0.03 (0.00-0.20) K/uL Immature Gran # (Auto) 0.06 (0.01-0.20) K/uL PT 10.9 (9.0-12.0) Seconds INR 1.0 (0.9-1.1) APTT 25 (21-31) Seconds PTT Ratio 0.9 D-Dimer 490 (0-500) ug/L FEU Sodium 135 L (136-145) mmol/L Potassium 4.6 (3.5-5.1) mmol/L Chloride 98 (98-107) mmol/L Carbon Dioxide 27 (21-32) mmol/L Anion Gap 10 (3-11) BUN 18 (6-23) mg/dl Creatinine 1.29 (0.6-1.4) mg/dl Est Cr Clr Drug Dosing Not Reportable eGFR 63.87 BUN/Creatinine Ratio 14.0 (10-20) Glucose 112 H (70-99(Fasting)) mg/dl Calcium 9.7 (8.6-10.3) mg/dl Magnesium 2.2 (1.7-2.4) mg/dl Troponin I High Sens 94.0 H* 84.7 H* (0-20) pg/ml Lipase 37 (11-82) U/L Imaging Data Attestation: I personally reviewed and interpreted this imaging study as follows: My Impression: Chest x-ray negative. Airway clear. No pneumothorax. No consolidation. No cardiomegaly or cephalization.. No free air under the diaphragm. No fractures of the skeletal structures. Radiologist's Impression: Chest X-Ray 10/04/25 16:27 Clinical History: Chest pain Technique: A frontal view of the chest was obtained Comparison is made to the prior examination dated 10/02/2025 Findings: There are no confluent pulmonary infiltrates. The heart size is at the upper limit of normal. No pleural effusion or pneumothorax is seen. There is suspected mild pulmonary edema No fracture is noted. Sternal wires and mediastinal maik are present. There is a left chest wall pacemaker device Impression: Mild pulmonary edema Electronically signed by Griffin Rae 10-04-2025 6:08 PM ECG Data Attestation: I personally reviewed and interpreted this ECG as follows: Additional Comments: Paced rhythm with a rate of 60. MI 136 QRS 478 QTc 478 no ectopy. [facility] Narrative 1621: The patient was evaluated in room C2. A complete history and physical exam was performed Cardiac monitoring: An order was placed for continuous cardiac monitoring. The monitor shows a rate of 60 with paced rhythm interpreted by me 1840: Vital signs stable. Labs are unremarkable with the exception of an elevated high-sensitivity troponin of 94, elevated from his troponin 2 days ago of 79.5. Discussed case with on-call [facility] cardiology Dr. Bauer. Both he and I feel the patient should be admitted and be evaluated by cardiology tomorrow morning. Patient is in agreement. Impression & Plan Heart palpitations, Elevated troponin I level Discharge Plan Visit Data Chief Complaint: Cardiac Assessment Stated Complaint: ILLNESS, CARDIAC ASSESSMENT ED Provider: Florentino Verduzco Discharge Problem: Heart palpitations, Elevated troponin I level Patient Disposition: Admitted As Inpatient Condition: Fair Discharge Instructions Interventions: ED Discharge Assessment Last Done: 10/04/25 22:13 Forms Stand Alone Forms: My [facility] Prescriptions Prescriptions: No Action furosemide 40 mg tablet 40 mg PO DAILY PRN (Reason: edema) Qty: 90 1RF Rx Instructions: HAS NOT USED IN SIX MONTHS OF 10/04/2025 tadalafil [Cialis] 20 mg tablet 20 mg PO DAILY PRN (Reason: sexual activity) Qty: 30 11RF Rx Instructions: administer approximately 30min before sexual activity; do not use more than 1 dose per 24hrs Jardiance 10 mg tablet 10 mg PO DAILY Qty: 90 3RF benralizumab 30 mg/mL auto-injector 30 mg subcut .COMPLEX Qty: 1 9RF Rx Instructions: INJECT 30MG SC EVERY 8 WEEKS APPROVED for Pen Injector only for Home [facility] GOOD 10/06/24-10/07/25 atorvastatin 80 mg tablet 80 mg PO QPM Qty: 90 3RF lisinopril 5 mg tablet 5 mg PO QAM Qty: 90 3RF albuterol sulfate [Ventolin HFA] 90 mcg/actuation HFA aerosol inhaler 2 puff Inhalation .COMPLEX PRN (Reason: Shortness Of Breath Or Wheezing) Qty: 6.7 3RF Rx Instructions: 2 puffs inhalation every 4-6 hours PRN; aspirin 81 mg Tablet,Delayed Release (Dr/Ec) 81 mg PO QAM Xhance 93 mcg/actuation aerosol breath activated 1 spray intranasal BID PRN (Reason: Shortness Of Breath) Rx Instructions: SPRAY 1 SPRAY INTO EACH NOSTRIL TWO TIMES DAILY PRN; lorazepam [Ativan] 0.5 mg tablet 0.5 mg PO HS PRN (Reason: sleep) Qty: 20 0RF amiodarone 200 mg tablet 200 mg PO BID magnesium 200 mg Tablet 250 mg PO DAILY potassium chloride 20 mEq tablet extended release 20 meq PO DAILY multivitamin Tablet 1 tab PO DAILY prednisone 10 mg tablet 5 mg PO QPM spironolactone 25 mg tablet 25 mg PO QPM pantoprazole 40 mg tablet,delayed release (DR/EC) 40 mg PO QPM metoprolol succinate 25 mg tablet extended release 24 hr 12.5 mg PO QPM Dulera 200-5 mcg/actuation HFA aerosol inhaler 2 puff INH BID PRN (Reason: Shortness Of Breath Or Wheezing) Referrals Referrals: Mahesh Herron III, CRNP [Primary Care Provider] -
--- NOTE | 2025-10-04 18:08 | XRay Report ---
Clinical History: Chest pain Technique: A frontal view of the chest was obtained Comparison is made to the prior examination dated 10/02/2025 Findings: There are no confluent pulmonary infiltrates. The heart size is at the upper limit of normal. No pleural effusion or pneumothorax is seen. There is suspected mild pulmonary edema No fracture is noted. Sternal wires and mediastinal maik are present. There is a left chest wall pacemaker device Impression: Mild pulmonary edema Electronically signed by Griffin Rae 10-04-2025 6:08 PM
[2025-10-04] MEDS: NITROGLYCERIN 2% OINTMENT 30GM TUBE EXT STA (20:26)
--- NOTE | 2025-10-04 20:30 | History & Physical Report ---
Date of Service October 04, 2025 Assessment & Plan (1) Ventricular tachycardia: (2) ICD (implantable cardioverter-defibrillator) discharge: (3) Elevated troponin I level: Plan The patient is a 60-year-old male with past medical history including ventricular tachycardia, ventricular fibrillation, bifascicular bundle branch block, presence of ICD with discharge, NSVT, CAD, asthma, ischemic cardiomyopathy, GERD, severe persistent asthma, eosinophilic asthma, hypercholesterolemia, and chronic systolic heart failure. He was seen in the emergency department 10/02/2025, due to palpitations and ICD firing several times. EKG at that time showed a wide QRS complex with rate 135. His ICD was adjusted at that visit, and he reports no palpitations since that time. He has noted over the past 24 hours development of epigastric to substernal pressure, which he is concerned may be a prelude to firing of his ICD again. The patient was brought to the emergency department by EMS, with a feeling of being washed out, low energy, being lightheaded and dizzy and major concerns regarding potential recurrence of ventricular tachycardia. Initial troponin was 94, with follow-up 84.7. Troponin on 10/02 was 79. Due to persistence of symptoms, patient was referred for evaluation [facility]. Ventricular tachycardia/ICD discharging/elevated troponin/ischemic cardiomyopathy/history of ventricular fibrillation/CAD/hypertension- Most recent echocardiogram on 07/08/2025, with ejection fraction 25-30%, severe diffuse hypokinesis, mild LVH, and mildly dilated left ventricle. The patient was seen in the emergency department on 10/02 with symptoms of palpitations, and ICD firing several times. EKG at that time showed a wide QRS complex with heart rate of 135. His ICD was reset at that time, and reports since then has not had any palpitations or ICD firing. Patient has however had sensation of epigastric discomfort radiating substernally, and has had increased belching for which he has been taking simethicone. EKG in the ED this evening shows atrial sensed V paced rhythm at 63. Troponin this evening initially 94, follow-up 84.7, with further testing to be done in a.m. Troponin on 10/02 was 79. Potassium was 4.6, magnesium 2.2 on admission labs this evening. Patient will continue amiodarone 200 mg p.o. twice daily, aspirin 81 mg every morning, metoprolol succinate 12.5 mg p.o. every morning. Will temporarily hold furosemide and potassium chloride LR at 80 mL/h x 1 L History of esophageal stricture with dilation/GERD/increased belching- Patient reports during discussion, that he had procedure of dilation done several years ago. Suspect his symptoms at this time of belching, epigastric discomfort with pressure sensation under his sternum, may be due to recurrence of esophageal stricture and not optimally controlled GERD. Increase his Protonix to 40 mg p.o. every afternoon to twice daily Simethicone 80 mg chews every 6 hours as needed He does report some symptoms of early satiety and feeling up more quickly than before. Patient will be n.p.o. send medications after midnight Consult gastroenterology for consideration of possible EGD. Severe persistent asthma/eosinophilic asthma/allergic rhinitis- On benralizumab as outpatient. Continue Dulera, and albuterol sulfate HFA as needed Feelings of being washed out, significant fatigue, low energy, lightheadedness and dizziness- Contributing factors including but not limited to: Carryover effect of frequent ICD firings a few days ago, mild dehydration, anxiety, mild asthma flare triggered by stress, others. History of Present Illness Primary Care Provider: Mahesh Herron III, JOEL The patient is a 60-year-old male with past medical history including ve ntricular tachycardia, ventricular fibrillation, bifascicular bundle branch block, presence of ICD with discharge, NSVT, CAD, asthma, ischemic cardiomyopathy, GERD, severe persistent asthma, eosinophilic asthma, hypercholesterolemia, and chronic systolic heart failure. He was seen in the emergency department 10/02/2025, due to palpitations and ICD firing several times. EKG at that time showed a wide QRS complex with rate 135. His ICD was adjusted at that visit, and he reports no palpitations since that time. He has noted over the past 24 hours development of epigastric to substernal pressure, which he is concerned may be a prelude to firing of his ICD again. The patient was brought to the emergency department by EMS, with a feeling of being washed out, low energy, being lightheaded and dizzy and major concerns regarding potential recurrence of ventricular tachycardia. Initial troponin was 94, with follow-up 84.7. Troponin on 10/02 was 79. Due to persistence of symptoms, patient was referred for evaluation for admission to the [facility]. Allergies Allergy/AdvReac Type Severity Reaction Status Date / Time Sulfa (Sulfonamide Allergy Mild RASH Verified 10/04/25 19:37 Antibiotics) mesalamine [From Asacol] AdvReac Intermediate increased Verified 10/04/25 19:37 stomach problems olsalazine [From Dipentum] AdvReac Intermediate increased Verified 10/04/25 19:37 stomach problems sacubitril [From Entresto] AdvReac Gastrointestinal Verified 10/04/25 19:37 Upset valsartan [From Entresto] AdvReac Gastrointestinal Verified 10/04/25 19:37 Upset Home Medications Medication Instructions Recorded Confirmed Type aspirin 81 mg tablet,delayed 81 mg PO QAM 02/10/19 10/04/25 History release furosemide 40 mg tablet 40 mg PO DAILY PRN edema #90 tabs 08/21/19 10/04/25 Rx albuterol sulfate 90 mcg/actuation 2 puff inhalation .COMPLEX PRN 05/19/23 10/04/25 Rx aerosol inhaler (Ventolin HFA) Shortness Of Breath Or Wheezing #6.7 grams tadalafil 20 mg tablet (Cialis) 20 mg PO DAILY PRN sexual activity 07/04/24 10/04/25 Rx #30 tabs empagliflozin 10 mg tablet 10 mg PO DAILY #90 tabs 10/06/24 10/04/25 Rx (Jardiance) benralizumab 30 mg/mL subcutaneous 30 mg subcut .COMPLEX #1 mL 10/09/24 10/04/25 Rx auto-injector atorvastatin 80 mg tablet 80 mg PO QPM #90 tabs 12/04/24 10/04/25 Rx fluticasone propionate 93 1 spray intranasal BID PRN 07/07/25 10/04/25 History mcg/actuation breath activated Shortness Of Breath aerosol (Xhance) lisinopril 5 mg tablet 5 mg PO QAM #90 tabs 07/17/25 10/04/25 Rx lorazepam 0.5 mg tablet (Ativan) 0.5 mg PO HS PRN sleep #20 tabs 10/02/25 10/04/25 Rx amiodarone 200 mg tablet 200 mg PO BID 10/04/25 10/04/25 History magnesium 200 mg tablet 250 mg PO DAILY 10/04/25 10/04/25 History metoprolol succinate 25 mg 12.5 mg PO QPM 10/04/25 10/04/25 History tablet,extended release 24 hr mometasone-formoterol HFA 200 2 puff inhalation BID PRN 10/04/25 10/04/25 History mcg-5 mcg/actuation aerosol Shortness Of Breath Or Wheezing inhaler (Dulera) multivitamin 1 tab PO DAILY 10/04/25 10/04/25 History pantoprazole 40 mg tablet,delayed 40 mg PO QPM 10/04/25 10/04/25 History release potassium chloride 20 mEq 20 meq PO DAILY 10/04/25 10/04/25 History tablet,extended release prednisone 10 mg tablet 5 mg PO QPM 10/04/25 10/04/25 History spironolactone 25 mg tablet 25 mg PO QPM 10/04/25 10/04/25 History Past Med/Surg History Problem List (Updated 10/04/25 @ 22:19 by Florentino Verduzco MD) Elevated troponin I level (Acute) Heart palpitations (Acute) Ventricular tachycardia (Acute) ICD (implantable cardioverter-defibrillator) discharge (Acute) Ventricular fibrillation (Acute) Bifascicular bundle branch block NSVT (nonsustained ventricular tachycardia) Coronary atherosclerosis of [place] coronary vessel (09/18/11) Asthma (09/18/11) Ischemic cardiomyopathy (Acute) ICD (implantable cardioverter-defibrillator) in place Esophageal reflux Severe persistent asthma (Chronic) Allergic rhinitis (Chronic) Eosinophilic asthma (Chronic) Plantar fasciitis Dysphagia Hypertension Hypercholesterolemia Chronic systolic (congestive) heart failure Chronic sinusitis of both maxillary sinuses (Chronic) Medical History ICD (implantable cardioverter-defibrillator) battery depletion History of colon polyps Presence of stent in artery History of COVID-19 05/08/23 @ [facility]--fever, harsh cough, fatigue--pt states all symptoms have improved (he was on paxlovid) Ischemic cardiomyopathy History of GI bleed History of ulcerative colitis CAD (coronary artery disease) follows with Dr. Stauffer>NEXT APT 12/05/21 Asthma HAS NOT NEEDED INHALER RECENTLY History of myocardial infarction 2000; 2012 History of sleep apnea resolved with wt loss Ulcerative colitis Surgical History S/P CABG (coronary artery bypass graft) S/P CABG x 2 2002>[facility]OCHILT History of cardiac catheterization 2000 [facility] [place] - mult stents (unable to recall exact [id number]- no stents 2002 [facility] [place] --> CABG 2012 [place] - 1 stent History of esophagogastroduodenoscopy (EGD) History of colonoscopy last 11/2021 @ [facility] S/P wisdom tooth extraction S/P implantation of automatic cardioverter/defibrillator (AICD) placed 2005; replaced 2011; medtronic; follows with Dr. Stauffer Family History Grandmother Myocardial infarction Father Coronary heart disease Mother Anxiety Cancer multiple myeloma Hypertension Brother Coronary heart disease Aunt Kidney disease Other No family history of adverse response to anesthesia No family history of bleeding disorder Denies family history of Colon cancer Ovarian cancer Prostate cancer Breast cancer Social History Smoking Status: Never smoker Tobacco Type: Pipe (twice a year ) Second Hand Exposure: No; Do You Dip or Chew Tobacco: No; Hx Alcohol Use: Yes Alcohol type: hard liquor Alcohol Intake Frequency: 2-3 x/Week Hx Substance Use: No Preferred Language: Montenegrin Communication Ability: Effective Visual Impairment: No Limitations Hearing Ability: Normal Nuclear Criticality Safety Engineer Required: No Beliefs That Will Affect Care: None marital status: Current Living Situation: Spouse current occupational status: employed 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 Feels Safe at Home: Yes Safety Concerns: Feels Safe At This Time Childhood Exposure to Second-Hand Smoke: No Diet: vegan caffeine: Yes (one coffee a day ) during the past year weight has: remained stable Dental Care, Regularly: Yes Physical Activity Frequency: Daily Seatbelt Use: always Sunscreen Use: No Assistive Devices: Glasses Review of Systems Review of Systems: The patient denies chest pain, palpitations, cough, lower extremity swelling, sore throat, fevers, chills, sweats, nausea, vomiting, diarrhea , constipation, abdominal pain, pelvic pain, blood in urine or stool, dysuria, urinary frequency or urgency, memory loss, loss of consciousness, rash, abnormal bruising or bleeding, imbalance, focal or generalized weakness, generalized arthralgias or myalgias, back or neck pain, or night sweats. The review of systems is otherwise negative other than for that already noted above, and at least 10 systems have been reviewed. Physical Exam Physical Exam: The patient is awake, alert and oriented 3, well developed and well nourished, normocephalic and atraumatic, lying in bed and in no acute distress. HEENT--PERRL, EOMI, mucous membranes and oropharynx mildly dry. Neck--supple. No JVD. No bruits. Thyroid normal, trachea midline, no ad enopathy. Heart--normal S1 and S2. No murmurs, rubs or gallops. Lungs--clear bilaterally, no respiratory distress, no accessory muscle use. Abdomen--normal bowel sounds and soft. Nontender. Nondistended, no hernias or masses, no organomegaly. Extremities--no cyanosis or clubbing. No edema. There are good distal pulses b/l. Dermatologic--normal skin turgor, normal color, no abnormal lymph nodes, no rash. Neurologic--cranial nerves II through XII grossly intact. Rheumatologic--normal range of motion. Psychiatric--normal affect. Results & Data Results & Data Vital Signs (Past 12 Hours) Vital Signs Temp Pulse Resp BP Pulse Ox O2 Del Method 10/04/25 18:00 61 13 104/60 94 10/04/25 17:30 61 17 94/62 L 97 10/04/25 17:00 60 21 104/62 97 10/04/25 16:30 60 10/04/25 16:27 60 17 99 Room Air 10/04/25 16:26 112/79 10/04/25 16:13 36.8 C 61 17 108/66 99 Room Air Laboratory Results Laboratory Results WBC 10.46 K/ul (4.8-10.8) 10/05/25 04:12 RBC 4.87 M/uL (4.70-6.10) 10/05/25 04:12 Hgb 15.9 g/dL (14.0-18.0) 10/05/25 04:12 Hct 47.1 % (42.0-52.0) 10/05/25 04:12 MCV 96.7 fL (80.0-100.0) 10/05/25 04:12 MCH 32.6 pg (25.0-34.0) 10/05/25 04:12 MCHC 33.8 g/dL (32.0-36.0) 10/05/25 04:12 RDW Std Deviation 50.1 fL (36.4-46.3) H 10/05/25 04:12 RDW Coeff of Héctor 14.1 % (11.5-14.5) 10/05/25 04:12 Plt Count 153 K/uL (130-400) 10/05/25 04:12 MPV 12.1 fL (9.4-12.4) 10/05/25 04:12 Immature Gran % (Auto) 0.5 % 10/05/25 04:12 Neut % (Auto) 81.7 % 10/05/25 04:12 Lymph % (Auto) 9.3 % 10/05/25 04:12 [place] % (Auto) 8.3 % 10/05/25 04:12 Eos % (Auto) 0.0 % 10/05/25 04:12 Baso % (Auto) 0.2 % 10/05/25 04:12 Neut # (Auto) 8.55 K/uL (1.40-6.50) H 10/05/25 04:12 Lymph # (Auto) 0.97 K/uL (1.20-3.40) L 10/05/25 04:12 [place] # (Auto) 0.87 K/uL (0.11-0.59) H 10/05/25 04:12 Eos # (Auto) 0.00 K/uL (0.00-0.50) 10/05/25 04:12 Baso # (Auto) 0.02 K/uL (0.00-0.20) 10/05/25 04:12 Immature Gran # (Auto) 0.05 K/uL (0.01-0.20) 10/05/25 04:12 PT 10.9 Seconds (9.0-12.0) 10/04/25 16:23 INR 1.0 (0.9-1.1) 10/04/25 16:23 APTT 25 Seconds (21-31) 10/04/25 16:23 PTT Ratio 0.9 10/04/25 16:23 D-Dimer 490 ug/L FEU (0-500) 10/04/25 16:23 Sodium 137 mmol/L (136-145) 10/05/25 04:12 Potassium 4.4 mmol/L (3.5-5.1) 10/05/25 04:12 Chloride 101 mmol/L (98-107) 10/05/25 04:12 Carbon Dioxide 27 mmol/L (21-32) 10/05/25 04:12 Anion Gap 9 (3-11) 10/05/25 04:12 BUN 18 mg/dl (6-23) 10/05/25 04:12 Creatinine 1.22 mg/dl (0.6-1.4) 10/05/25 04:12 Est Cr Clr Drug Dosing 75.8 ml/min 10/05/25 04:12 eGFR 68.29 10/05/25 04:12 BUN/Creatinine Ratio 14.8 (10-20) 10/05/25 04:12 Glucose 87 mg/dl (70-99(Fasting)) 10/05/25 04:12 Calcium 9.4 mg/dl (8.6-10.3) 10/05/25 04:12 Magnesium 2.3 mg/dl (1.7-2.4) 10/05/25 04:12 Total Bilirubin 0.9 mg/dl (0.2-1.0) 10/05/25 04:12 AST 17 U/L (13-39) 10/05/25 04:12 ALT 16 U/L (7-52) 10/05/25 04:12 Alkaline Phosphatase 92 U/L (34-104) 10/05/25 04:12 Troponin I High Sens 84.7 pg/ml (0-20) H* 10/04/25 18:07 Total Protein 6.9 gm/dl (6.0-8.3) 10/05/25 04:12 Albumin 4.1 gm/dl (3.4-5.0) 10/05/25 04:12 Globulin 2.8 gm/dl (2.5-4.0) 10/05/25 04:12 Albumin/Globulin Ratio 1.5 (0.9-2) 10/05/25 04:12 Lipase 37 U/L (11-82) 10/04/25 16:23 Impressions Chest X-Ray 11/13/25 16:27 Clinical History: Chest pain Technique: A frontal view of the chest was obtained Comparison is made to the prior examination dated 10/02/2025 Findings: There are no confluent pulmonary infiltrates. The heart size is at the upper limit of normal. No pleural effusion or pneumothorax is seen. There is suspected mild pulmonary edema No fracture is noted. Sternal wires and mediastinal maik are present. There is a left chest wall pacemaker device Impression: Mild pulmonary edema Electronically signed by Griffin Rae 10-04-2025 6:08 PM Code Status & VTE Plan Code Status Full code VTE Prophylaxis Plan VTE Prophylaxis will be ordered: Yes PG Care Time/CCT Total # of Minutes Spent Total Time Spent with Patient: Total time spent is greater than 50% in coordination of care (as documented) at patient's floor/unit and/or counseling patient: Coding Level of Care Code 39338 INT INP/OBS CARE 3/75MIN Diagnoses Ventricular tachycardia I47.20 ICD (implantable cardioverter-defibrillator) discharge Z45.02 Elevated troponin I level R79.89
[2025-10-04] MEDS ORDERED: ACETAMINOPHEN 325 MG TAB PO PRN (22:23)
[2025-10-04] MEDS ORDERED: SIMETHICONE 80 MG CHEW PO PRN (22:23)
[2025-10-04] MEDS ORDERED: ALBUTEROL HFA 8 GM INHALER INH PRN (22:23)
[2025-10-04] MEDS ORDERED: FLUTICASONE PROPIONATE NA SPR 16 GM BTL PRN (22:25)
[2025-10-04] MEDS: AMIODARONE 200 MG TAB PO SCH (23:00)
[2025-10-04] MEDS: SPIRONOLACTONE 25 MG TAB PO SCH (23:00)
[2025-10-04] MEDS: METOPROLOL SUCC 25MG EXT REL TAB PO SCH (23:00)
[2025-10-04] MEDS: ATORVASTATIN 40 MG TAB PO SCH (23:00)
[2025-10-05 04:55] LABS: Hematocrit (blood only) 47.1 % (42.0-52.0); Hemoglobin 15.9 g/dL (14.0-18.0); Immature Granulocytes # (auto) 0.05 K/uL (0.01-0.20); Immature Granulocytes % (auto) 0.5 %; Mean Corpuscular Hemoglobin 32.6 pg (25.0-34.0); Mean Corpuscular Volume 96.7 fL (80.0-100.0); Platelet Count 153 K/uL (130-400); RDW Standard Deviation 50.1 fL (36.4-46.3); Red Blood Count 4.87 M/uL (4.70-6.10); White Blood Count 10.46 K/ul (4.8-10.8)
[2025-10-05 05:11] LABS: Alanine Aminotransferase 16.0 U/L (7-52); Albumin Globulin Ratio 1.5 (0.9-2); Albumin Level 4.1 gm/dl (3.4-5.0); Alkaline Phosphatase 92.0 U/L (34-104); Anion Gap 9.0 (3-11); Bilirubin,Total 0.9 mg/dl (0.2-1.0); Blood Urea Nitrogen 18.0 mg/dl (6-23); Calcium 9.4 mg/dl (8.6-10.3); Carbon Dioxide 27.0 mmol/L (21-32); Chloride 101.0 mmol/L (98-107); Creatinine Clr Calc Pharmacy 75.8 ml/min; Globulin 2.8 gm/dl (2.5-4.0); Glucose 87.0 mg/dl (70-99(Fasting)); Magnesium 2.3 mg/dl (1.7-2.4); Potassium 4.4 mmol/L (3.5-5.1); Sodium 137.0 mmol/L (136-145); Total Protein 6.9 gm/dl (6.0-8.3)
[2025-10-05] MEDS: MULTIVITAMIN TAB PO SCH (08:45)
[2025-10-05] MEDS: POTASSIUM CHLORIDE CRTAB 20 MEQ TABCR PO SCH (08:45)
[2025-10-05] MEDS: MAGNESIUM OXIDE 400 MG TAB PO SCH (08:46)
[2025-10-05] MEDS: FLUTICASONE/VILANTEROL 100/25MCG 14 PUFFS/INHALER INH SCH (08:46)
[2025-10-05] MEDS: ASPIRIN 81 MG ECTAB PO SCH (08:46)
[2025-10-05] MEDS: EMPAGLIFLOZIN 10 MG TAB PO SCH (08:46)
--- NOTE | 2025-10-05 10:06 | Electrocardiogram Report ---
Test Reason : Blood Pressure : */* mmHG Vent. Rate : 63 BPM Atrial Rate : 63 BPM P-R Int : 136 ms QRS Dur : 148 ms QT Int : 468 ms P-R-T Axes : 57 265 92 degrees QTcB Int : 478 ms Atrial-sensed ventricular-paced rhythm Biventricular pacemaker detected Abnormal ECG When compared with ECG of 02-Oct-2025 08:43, Electronic ventricular pacemaker has replaced Ventricular tachycardia Vent. rate has decreased by 72 bpm Confirmed by Harshal Anders ([id number]) on 10/05/2025 10:06:16 AM Referred By: REFERRED SELF Confirmed By: Harshal Anders
[2025-10-05] MEDS ORDERED: LACTATED RINGER'S 1,000 ML IV SCH (12:00)
--- NOTE | 2025-10-05 12:08 | Cardiology Consultation ---
Date of Consultation October 05, 2025 Assessment & Plan (1) Ischemic cardiomyopathy: Plan 1. Elevated troponin; mild - There is a slight elevation in his troponin, this may be due to the fact that he has recently been in ventricular tachycardia. His EKG is not suggestive of any acute ischemia. His described symptoms do not point to an obvious cardiac cause 2. MO, CAD status post PCI x 2, CABG x 2 3. Ischemic cardiomyopathy with most recent EF of 25 to 30% 4. Vtach storm s/p ablation Aug 2025 - ICD was initially placed for primary prevention and has worked in episodes of V. tach and the detection limits. He recently underwent a V. tach ablation at [facility] in August 2025 after having a V. tach storm. - Continue with amiodarone 200 mg twice daily - Continue his daily regimen of aspirin, atorvastatin 80 mg, Jardiance 10mg, and lisinopril 5mg. Continue 12.5 mg of metoprolol succinate in the evening. Ideally, we would like to increase his metoprolol succinate with time though he has had difficulties with tolerating beta-blockers in the past. -Trend EKGs and troponin if any chest discomfort occurs Supervising Physician Co-Signing Physician Notes Patient interviewed and examined, reviewed in detail with Anya Healy. He has had no further VT since ICD reprogramming earlier this week. His current symptoms are not due to an arrhythmia. History of Present Illness Attending Physician: Jose Ramon Ghosh MD History of Present Illness Nestor is a 60 year old male with a complex medical history that includes CAD s/p PCI to LAD 2000, s/p CABGx2 (KAVON CHUNG 2002), s/p PCI to pCX in 2012, ischemic cardiomyopathy s/p ICD (2005) which was then upgraded to BiV ICD in 2023, recent recent VT ablation due to VT storm on 08/23/2025 at [facility] and GERD with recurrent esophageal stricture requiring esophageal stretching. A few days ago on 10/02/2025, he was seen in the [facility] ER for symptoms of generalized fatigue, malaise, some mild chest discomfort and palpitations. He had stated that he felt like his heart has been racing for several days prior to his ER visit. In the ER, he was found to be hypotensive. His troponin peaked at 79.5. His EKG revealed ventricular tachycardia with an EKG recorded rate of 135 bpm. Given this rate was below his cardiac device's detection limit, his device did not attempt to pace him out of the rhythm or fire. There were adjustments made by Dr. Anders while he was in the ER. After the adjustments were made, the patient was able to be paced into a normal rhythm. He was then discharged home. No medication adjustments were made. He returned to the ER on 10/04/25 after 24 hours of epigastric discomfort, an increase in belching and low energy. He reportedly called his PCP who told him to proceed to the ER. He had complained of feeling lightheaded and dizzy. He/ denied any obvious chest discomfort or palpitations. His EKG revealed a dual paced rhythm with a rate of 60 bpm. He had an initial troponin of 94 which has since downtrended to 74.3. He has been normotensive. CXR revealed possible mild pulmonary edema. The patient told me while he was getting his workup in the ER, he belched loudly that relieved most of the symptoms he had complained of. Today, he still feels like something may be, " off." He describes it as slight dizziness and mild brain fog.he denies any episodes of near syncope. He denies any chest discomfort today. He is denying any palpitations. He is denying any shortness of breath or swelling to his lower extremities. His device was interrogated again today. There have been no acute arrhythmic events have occurred since 10/02/2025. There are no obvious device issues. His last echocardiogram was completed 07/08/2025: - Moderately dilated LV with severely reduced systolic function - Mild LVH Estimated EF 25 to 30% Severe diffuse hypokinesis with akinesis to the septum, anterior septum, apex, anterior and distal inferior leblanc - No significant valvular disease Allergies Allergy/AdvReac Type Severity Reaction Status Date / Time Sulfa (Sulfonamide Allergy Mild RASH Verified 10/04/25 19:37 Antibiotics) mesalamine [From Asacol] AdvReac Intermediate increased Verified 10/04/25 19:37 stomach problems olsalazine [From Dipentum] AdvReac Intermediate increased Verified 10/04/25 19:37 stomach problems sacubitril [From Entresto] AdvReac Gastrointestinal Verified 10/04/25 19:37 Upset valsartan [From Entresto] AdvReac Gastrointestinal Verified 10/04/25 19:37 Upset Home Medications Medication Instructions Recorded Confirmed Type aspirin 81 mg tablet,delayed 81 mg PO QAM 02/10/19 10/04/25 History release furosemide 40 mg tablet 40 mg PO DAILY PRN edema #90 tabs 08/21/19 10/04/25 Rx albuterol sulfate 90 mcg/actuation 2 puff inhalation .COMPLEX PRN 05/19/23 10/04/25 Rx aerosol inhaler (Ventolin HFA) Shortness Of Breath Or Wheezing #6.7 grams tadalafil 20 mg tablet (Cialis) 20 mg PO DAILY PRN sexual activity 07/04/24 10/04/25 Rx #30 tabs empagliflozin 10 mg tablet 10 mg PO DAILY #90 tabs 10/06/24 10/04/25 Rx (Jardiance) benralizumab 30 mg/mL subcutaneous 30 mg subcut .COMPLEX #1 mL 10/09/24 10/04/25 Rx auto-injector atorvastatin 80 mg tablet 80 mg PO QPM #90 tabs 12/04/24 10/04/25 Rx fluticasone propionate 93 1 spray intranasal BID PRN 07/07/25 10/04/25 History mcg/actuation breath activated Shortness Of Breath aerosol (Xhance) lisinopril 5 mg tablet 5 mg PO QAM #90 tabs 07/17/25 10/04/25 Rx lorazepam 0.5 mg tablet (Ativan) 0.5 mg PO HS PRN sleep #20 tabs 10/02/25 10/04/25 Rx amiodarone 200 mg tablet 200 mg PO BID 10/04/25 10/04/25 History magnesium 200 mg tablet 250 mg PO DAILY 10/04/25 10/04/25 History metoprolol succinate 25 mg 12.5 mg PO QPM 10/04/25 10/04/25 History tablet,extended release 24 hr mometasone-formoterol HFA 200 2 puff inhalation BID PRN 10/04/25 10/04/25 History mcg-5 mcg/actuation aerosol Shortness Of Breath Or Wheezing inhaler (Dulera) multivitamin 1 tab PO DAILY 10/04/25 10/04/25 History pantoprazole 40 mg tablet,delayed 40 mg PO QPM 10/04/25 10/04/25 History release potassium chloride 20 mEq 20 meq PO DAILY 10/04/25 10/04/25 History tablet,extended release prednisone 10 mg tablet 5 mg PO QPM 10/04/25 10/04/25 History spironolactone 25 mg tablet 25 mg PO QPM 10/04/25 10/04/25 History Patient History Medical History ICD (implantable cardioverter-defibrillator) battery depletion History of colon polyps Presence of stent in artery History of COVID-19 05/08/23 @ [facility]--fever, harsh cough, fatigue--pt states all symptoms have improved (he was on paxlovid) Ischemic cardiomyopathy History of GI bleed History of ulcerative colitis CAD (coronary artery disease) follows with Dr. Stauffer>NEXT APT 12/05/21 Asthma HAS NOT NEEDED INHALER RECENTLY History of myocardial infarction 2000; 2012 History of sleep apnea resolved with wt loss Ulcerative colitis Surgical History S/P CABG (coronary artery bypass graft) S/P CABG x 2 2002>[facility] History of cardiac catheterization 2000 [facility] [place] - mult stents (unable to recall exact [id number]- no stents 2002 [facility] [place] --> CABG 2012 [place] - [place] - 1 stent History of esophagogastroduodenoscopy (EGD) History of colonoscopy last 11/2021 @ [facility] S/P wisdom tooth extraction S/P implantation of automatic cardioverter/defibrillator (AICD) placed 2005; replaced 2011; medtronic; follows with Dr. Stauffer Family History Grandmother Myocardial infarction Father Coronary heart disease Mother Anxiety Cancer multiple myeloma Hypertension Brother Coronary heart disease Aunt Kidney disease Other No family history of adverse response to anesthesia No family history of bleeding disorder Denies family history of Colon cancer Ovarian cancer Prostate cancer Breast cancer Social History Smoking Status: Never smoker Tobacco Type: Pipe (twice a year ) Second Hand Exposure: No; Do You Dip or Chew Tobacco: No; Hx Alcohol Use: Yes Alcohol type: hard liquor Alcohol Intake Frequency: 2-3 x/Week Hx Substance Use: No Preferred Language: Albanian Communication Ability: Effective Visual Impairment: No Limitations Hearing Ability: Normal Paper Finisher Required: No Beliefs That Will Affect Care: None marital status: Current Living Situation: Spouse current occupational status: employed 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 Mood affect appear normal. All questions appropriately. HEENT: Sclerae are anicteric. Pupils are equal and reactive to light and accommodation. Extraocular movements were intact. Neuro: Cranial nerves intact Lungs: Lungs are clear to auscultation bilaterally. There are no rales wheezes or rhonchi. Normal respiratory effort without use of accessory muscles. Cardiac: The rhythm was regular. S1 and S2 were normal. There are no murmurs on examination. The PMI was not markedly displaced on palpation. Extremities: Patient has bilateral radial pulses that are equal in intensity. There is no evidence cyanosis or clubbing. There was no evidence of significant peripheral edema bilaterally. Skin: There are no rashes noted on examination today. Results & Data Vital Signs (Past 12 Hours) Vital Signs Temp Pulse Pulse Resp BP Pulse Ox O2 Del Method 10/05/25 11:26 37.1 C 59 L 19 106/69 100 Room Air 10/05/25 08:00 60 10/05/25 07:40 36.4 C L 60 18 117/78 99 Room Air 10/05/25 04:05 36.5 C 61 18 117/76 93 Room Air PG Care Time/CCT Total # of Minutes Spent Total Time Spent with Patient: Total time spent is greater than 50% in coordination of care (as documented) at patient's floor/unit and/or counseling patient: Coding [place] [address] IN/OBS CONSULT LVL 4,60M Patient Type Established Diagnoses Ischemic cardiomyopathy I25.5
--- NOTE | 2025-10-05 13:13 | Hospitalist Progress Note ---
Date of Service October 05, 2025 Assessment & Plan (1) Lightheadedness: Plan: Cardiology has notified me that there is no significant ectopy noted on his implant interrogation. His current symptoms may be due to orthostatic hypotension or possibly hypoglycemia. Both are being further investigated. Continue telemetry for now. Supportive care (2) Ventricular tachycardia: Plan: By history. He has an AICD. Cardiology consultation appreciated. No recent significant ectopy or discharges noted per AICD interrogation per cardiology (3) ICD (implantable cardioverter-defibrillator) discharge: Plan: This has not occurred within the past 24 hours. Cardiology has stated that there is no significant ectopy seen and no evidence of any recent discharges. (4) Elevated troponin I level: Plan: Present on admission. Not trending. No evidence of ACS. (5) Chronic systolic (congestive) heart failure: Plan: No overt exacerbation at this time. Monitor intake and output. Plan Hopeful discharge to home in the next day or 2 Admission and Anticipated Discharge Date Admission Date: October 04, 2025 Subjective Alert and oriented without symptoms at the time of my rounds today, October 05. His is at the bedside. Cardiology has notified me that there is no significant ectopy seen on his AICD and no recent discharges. His current symptoms may be due to orthostatic hypotension or possibly hypoglycemia. Blood pressure and glucose will be watched closely. Review of Systems 2 Review of Systems: Constitutionalno fever or chills ENTno blurred vision, no double vision, no epistaxis, no sore throat Respiratoryno cough, no wheezing, no shortness of breath Cardiacno palpitations, no chest pain, no syncope Mariely nausea, vomiting, diarrhea, melena, hematochezia GUno urinary retention, no urinary incontinence, no dysuria, no hematuria Musculoskeletalno joint pain, no muscle tenderness Skinno bruising, no rashes, no pruritus Neurono isolated weakness, no paresthesia, no weakness Psychno depression, no anxiety Physical Exam 2 Physical Exam: General-alert and oriented x3, no fever, no chills HEENT-head atraumatic and normocephalic, pupils equal and reactive to light, extraocular muscles intact Neck-no lymphadenopathy or thyromegaly, trachea midline Chest-clear to auscultation. No rales, wheezing or rhonchi Cardiac-regular rate and rhythm, normal S1 and S2 Abdomen-normal bowel sounds, no hepatosplenomegaly Extremities-no cyanosis, clubbing, or edema Neuro-cranial nerves II through XII intact, motor and sensory function within normal limits, strength symmetrical, no focal deficits Psych-normal affect, normal mood Results & Data Results & Data Vital Signs (Past 12 Hours) Vital Signs Temp Pulse Pulse Resp BP Pulse Ox O2 Del Method 10/05/25 11:26 37.1 C 59 L 19 106/69 100 Room Air 10/05/25 08:00 60 10/05/25 07:40 36.4 C L 60 18 117/78 99 Room Air 10/05/25 04:05 36.5 C 61 18 117/76 93 Room Air Laboratory Results 10/05/25 04:12 10/05/25 04:12 PG Care Time/CCT Total # of Minutes Spent Total Time Spent with Patient: Total time spent is greater than 50% in coordination of care (as documented) at patient's floor/unit and/or counseling patient: Coding Level of Care Code 46414 SUB INP/OBS CARE 3/50MIN Diagnoses Lightheadedness R42 Ventricular tachycardia I47.20 ICD (implantable cardioverter-defibrillator) discharge Z45.02 Elevated troponin I level R79.89 Chronic systolic (congestive) heart failure I50.22
--- NOTE | 2025-10-05 13:36 | Gastrointestinal Consultation ---
Date of Consultation October 05, 2025 Assessment & Plan (1) Belching: Very vague symptoms of lightheadedness, brain fog, and associated belching. It is difficult to speak to the cause as these symptoms are atypical for one specific GI etiology but more so functional symptoms from associated cardiac picture (including meds). At the current time, would advise continue PPI therapy. Ok to use Simethicone supportively. No emergent need for EGD, however will discuss further planning/recommendations with attending attending GI physician. Supervising Physician Co-Signing Physician Notes I personally saw and examined the patient. I have reviewed the chart and agree with the documentation provided by the ADJUNCT LECTURER including discussion about the assessment, treatment and plan. Briefly, 60 yo male with CAD s/p PCI to LAD 2000, s/p CABGx2 (KAVON CHUNG 2002), s/p PCI to pCX in 2012, ischemic cardiomyopathy s/p ICD (2005) which was then upgraded to BiV ICD in 2023, recent VT ablation due to VT storm on 08/23/2025 at [facility] and GERD and esophageal stricture. He has been to the ED at [facility] and hospitalized frequently since June 2025. He was in the ED several days ago due to fatigue, malaise, and chest discomfort. He was hypotensive with a slight bump in his troponin at that time. His HR was 135, but this was below his pacemakers threshold for detection so it did not pace him out of the rhythm. This was adjusted and he returned to a normal rhythm and was subsequently discharged. His symptoms are quite vague and are either associated with bloating pain nausea. All of them started after starting amiodarone. The differential at this point is gastroparesis versus small intestinal bacterial overgrowth versus med effect from amiodarone. I asked him to change his diet a little bit by taki ng 5-7 meals with 2 of them being liquid in case this is related to motility. We can do an outpatient gastric emptying study and he can use OTC simethicone and walking to see if this helps with some of the bloating and gas. If all else fails then we may have to consider changing amiodarone but given his cardiac history, I am quite hesitant to do anything like this. For now, supportive care with simethicone change in diet and outpatient gastric emptying study. GI has no further recommendations from a GI standpoint he is stable. History of Present Illness Reason for Consultation: GERD, belching Attending Physician: Jose Ramon Ghosh MD History of Present Illness Patient is a 60 yo male with CAD s/p PCI to LAD 2000, s/p CABGx2 (SHELDON, JENNIFERGOM 2002), s/p PCI to pCX in 2012, ischemic cardiomyopathy s/p ICD (2005) w hich was then upgraded to BiV ICD in 2023, recent VT ablation due to VT storm on 08/23/2025 at [facility] and GERD and esophageal stricture. He has been to the ED at [facility] and hospitalized frequently since June 2025. He was in the ED several days ago due to fatigue, malaise, and chest discomfort. He was hypotensive with a slight bump in his troponin at that time. His HR was 135, but this was below his pacemakers threshold for detection so it did not pace him out of the rhythm. This was adjusted and he returned to a normal rhythm and was subsequently discharged. He returned to the ED due to low energy. He notes he felt lightheaded and dizzy. He notes that he gets episodes of sweating and thinks his vagal nerve is being stimulated. He notes belching with these episodes. He feels that these episodes began after the pacemaker was placed in June 2025. Since being here, his pacemaker has been assessed. cardiology has evaluated patient. His last Echo estimates his EF at 25-30%. He has severe hypokinesis to the septum, anterior septum, anterior and distal inferior leblanc. Patient notes he has brain fog and belching. No concerning GI symptoms of hematemesis, melena, dysphagia, rectal bleeding, hematochezia. No focal abdominal pain. He does take Pantoprazole 40 mg daily at home. Last EGD in 2022 and an esophageal stricture was dilated. Biopsies of the esopha dawood are unremarkable. Allergies Allergy/AdvReac Type Severity Reaction Status Date / Time Sulfa (Sulfonamide Allergy Mild RASH Verified 10/04/25 19:37 Antibiotics) mesalamine [From Asacol] AdvReac Intermediate increased Verified 10/04/25 19:37 stomach problems olsalazine [From Dipentum] AdvReac Intermediate increased Verified 10/04/25 19:37 stomach problems sacubitril [From Entresto] AdvReac Gastrointestinal Verified 10/04/25 19:37 Upset valsartan [From Entresto] AdvReac Gastrointestinal Verified 10/04/25 19:37 Upset Home Medications Medication Instructions Recorded Confirmed Type aspirin 81 mg tablet,delayed 81 mg PO QAM 02/10/19 10/04/25 History release furosemide 40 mg tablet 40 mg PO DAILY PRN edema #90 tabs 08/21/19 10/04/25 Rx albuterol sulfate 90 mcg/actuation 2 puff inhalation .COMPLEX PRN 05/19/23 10/04/25 Rx aerosol inhaler (Ventolin HFA) Shortness Of Breath Or Wheezing #6.7 grams tadalafil 20 mg tablet (Cialis) 20 mg PO DAILY PRN sexual activity 07/04/24 10/04/25 Rx #30 tabs empagliflozin 10 mg tablet 10 mg PO DAILY #90 tabs 10/06/24 10/04/25 Rx (Jardiance) benralizumab 30 mg/mL subcutaneous 30 mg subcut .COMPLEX #1 mL 10/09/24 10/04/25 Rx auto-injector atorvastatin 80 mg tablet 80 mg PO QPM #90 tabs 12/04/24 10/04/25 Rx fluticasone propionate 93 1 spray intranasal BID PRN 07/07/25 10/04/25 History mcg/actuation breath activated Shortness Of Breath aerosol (Xhance) lisinopril 5 mg tablet 5 mg PO QAM #90 tabs 07/17/25 10/04/25 Rx lorazepam 0.5 mg tablet (Ativan) 0.5 mg PO HS PRN sleep #20 tabs 10/02/25 10/04/25 Rx amiodarone 200 mg tablet 200 mg PO BID 10/04/25 10/04/25 History magnesium 200 mg tablet 250 mg PO DAILY 10/04/25 10/04/25 History metoprolol succinate 25 mg 12.5 mg PO QPM 10/04/25 10/04/25 History tablet,extended release 24 hr mometasone-formoterol HFA 200 2 puff inhalation BID PRN 10/04/25 10/04/25 History mcg-5 mcg/actuation aerosol Shortness Of Breath Or Wheezing inhaler (Dulera) multivitamin 1 tab PO DAILY 10/04/25 10/04/25 History pantoprazole 40 mg tablet,delayed 40 mg PO QPM 10/04/25 10/04/25 History release potassium chloride 20 mEq 20 meq PO DAILY 10/04/25 10/04/25 History tablet,extended release prednisone 10 mg tablet 5 mg PO QPM 10/04/25 10/04/25 History spironolactone 25 mg tablet 25 mg PO QPM 10/04/25 10/04/25 History Patient History Medical History ICD (implantable cardioverter-defibrillator) battery depletion History of colon polyps Presence of stent in artery History of COVID-19 05/08/23 @ [facility]--fever, harsh cough, fatigue--pt states all symptoms have improved (he was on paxlovid) Ischemic cardiomyopathy History of GI bleed History of ulcerative colitis CAD (coronary artery disease) follows with Dr. Stauffer>NEXT APT 12/05/21 Asthma HAS NOT NEEDED INHALER RECENTLY History of myocardial infarction 2000; 2012 History of sleep apnea resolved with wt loss Ulcerative colitis Surgical History S/P CABG (coronary artery bypass graft) S/P CABG x 2 2002>[place] [facility] History of cardiac catheterization 2000 [facility] [place] - mult stents (unable to recall exact [id number]- no stents 2002 [facility] [place] --> CABG [place] - 1 stent History of esophagogastroduodenoscopy (EGD) History of colonoscopy last 11/2021 @ [facility] S/P wisdom tooth extraction S/P implantation of automatic cardioverter/defibrillator (AICD) placed 2005; replaced 2011; medtronic; follows with Dr. Stauffer Family History Grandmother Myocardial infarction Father Coronary heart disease Mother Anxiety Cancer multiple myeloma Hypertension Brother Coronary heart disease Aunt Kidney disease Other No family history of adverse response to anesthesia No family history of bleeding disorder Denies family history of Colon cancer Ovarian cancer Prostate cancer Breast cancer Social History Smoking Status: Never smoker Tobacco Type: Pipe (twice a year ) Second Hand Exposure: No; Do You Dip or Chew Tobacco: No; Hx Alcohol Use: Yes Alcohol type: hard liquor Alcohol Intake Frequency: 2-3 x/Week Hx Substance Use: No Preferred Language: Finnish Communication Ability: Effective Visual Impairment: No Limitations Hearing Ability: Normal Special Skills Officer Required: No Beliefs That Will Affect Care: None marital status: Current Living Situation: Spouse current occupational status: employed 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 Feels Safe at Home: Yes Safety Concerns: Feels Safe At This Time Childhood Exposure to Second-Hand Smoke: No Diet: vegan caffeine: Yes (one coffee a day ) during the past year weight has: remained stable Dental Care, Regularly: Yes Physical Activity Frequency: Daily Seatbelt Use: always Sunscreen Use: No Assistive Devices: None Review of Systems Constitutional: no fever and no chills Gastrointestinal: + belching; no abdominal pain, no nausea , no vomiting, no coffee ground emesis, no hematemesis, no blood in stools and no melena Physical Exam Constitutional: well developed Respiratory: normal respiratory effort Cardiovascular: Rate/Rhythm: regular rate Gastrointestinal (Abdomen): normal bowel sounds, soft, nontender, no hepatosplenomegaly Results & Data Vital Signs (Past 12 Hours) Vital Signs Temp Pulse Pulse Resp BP Pulse Ox O2 Del Method 10/05/25 11:26 37.1 C 59 L 19 106/69 100 Room Air 10/05/25 08:00 60 10/05/25 07:40 36.4 C L 60 18 117/78 99 Room Air 10/05/25 04:05 36.5 C 61 18 117/76 93 Room Air PG Care Time/CCT Total # of Minutes Spent Total Time Spent with Patient: Total time spent is greater than 50% in coordination of care (as documented) at patient's floor/unit and/or counseling patient: Coding Level of Care Code 44413 IN/OBS CONSULT LVL 4,60M Diagnoses Belching R14.2
[2025-10-05] MEDS: LORazepam 0.5 MG TAB PO PRN (18:42)
[2025-10-05 19:43] VITALS: PULSE 60
[2025-10-06 05:55] VITALS: RESP 20
[2025-10-06 07:10] LABS: Hematocrit (blood only) 42.7 % (42.0-52.0); Hemoglobin 14.5 g/dL (14.0-18.0); Immature Granulocytes # (auto) 0.05 K/uL (0.01-0.20); Immature Granulocytes % (auto) 0.7 %; Mean Corpuscular Hemoglobin 32.6 pg (25.0-34.0); Mean Corpuscular Volume 96.0 fL (80.0-100.0); Platelet Count 127 K/uL (130-400); RDW Standard Deviation 49.8 fL (36.4-46.3); Red Blood Count 4.45 M/uL (4.70-6.10); White Blood Count 7.64 K/ul (4.8-10.8)
[2025-10-06 07:54] LABS: Alanine Aminotransferase 14.0 U/L (7-52); Albumin Globulin Ratio 1.8 (0.9-2); Albumin Level 3.9 gm/dl (3.4-5.0); Alkaline Phosphatase 82.0 U/L (34-104); Anion Gap 6.0 (3-11); Bilirubin,Total 1.0 mg/dl (0.2-1.0); Blood Urea Nitrogen 18.0 mg/dl (6-23); Calcium 9.1 mg/dl (8.6-10.3); Carbon Dioxide 30.0 mmol/L (21-32); Chloride 101.0 mmol/L (98-107); Creatinine Clr Calc Pharmacy 71.1 ml/min; Globulin 2.2 gm/dl (2.5-4.0); Glucose 76.0 mg/dl (70-99(Fasting)); Magnesium 2.2 mg/dl (1.7-2.4); Potassium 4.9 mmol/L (3.5-5.1); Sodium 137.0 mmol/L (136-145); Total Protein 6.1 gm/dl (6.0-8.3)
--- NOTE | 2025-10-06 08:08 | Electrocardiogram Report ---
Test Reason : Blood Pressure : */* mmHG Vent. Rate : 60 BPM Atrial Rate : 60 BPM P-R Int : 126 ms QRS Dur : 154 ms QT Int : 496 ms P-R-T Axes : 114 268 110 degrees QTcB Int : 496 ms AV dual-paced rhythm Biventricular pacemaker detected Abnormal ECG When compared with ECG of 04-Oct-2025 16:23, (unconfirmed) Vent. rate has decreased by 3 bpm Confirmed by Harshal Anders ([id number]) on 10/06/2025 8:08:11 AM Referred By: REFERRED SELF Confirmed By: Harshal Anders
[2025-10-06 08:18] VITALS: BP 103/70; TEMP 99.5; O2SAT 98
--- NOTE | 2025-10-06 10:39 | Discharge Summary ---
Discharge Summary Date of Service October 06, 2025 Principal Dx & Hospital Course #1 = Principal Diagnosis (1) Lightheadedness: Cardiology has notified me that there is no significant ectopy noted on his implant interrogation. His current symptoms are probably due to orthostatic hypotension or possibly hypoglycemia. Jardiance has been discontinued. Supportive care (2) Ventricular tachycardia: By history. He has an AICD. Cardiology consultation appreciated. No recent significant ectopy or discharges noted per AICD interrogation per cardiology (3) ICD (implantable cardioverter-defibrillator) discharge: This has not occurred within the past 24 hours. Cardiology has stated that there is no significant ectopy seen and no evidence of any recent discharges. (4) Elevated troponin I level: Present on admission. Not trending. No evidence of ACS. (5) Chronic systolic (congestive) heart failure: No overt exacerbation at this time. Monitor intake and output. Plan I suspect his symptoms are due to transient intermittent orthostasis and/or hypoglycemic episodes. Jardiance has been discontinued. All other medications remain the same. He has been instructed to see his PCP and numerical analysis group manager as soon as possible. Home today, October 06 Admission HPI Per Admitting Provider The patient is a 60-year-old male with past medical history including ventricular tachycardia, ventricular fibrillation, bifascicular bundle branch block, presence of ICD with discharge, NSVT, CAD, asthma, ischemic cardiomyopathy, GERD, severe persistent asthma, eosinophilic asthma, hypercholesterolemia, and chronic systolic heart failure. He was seen in the emergency department 10/02/2025, due to palpitations and ICD firing several times. EKG at that time showed a wide QRS complex with rate 135. His ICD was adjusted at that visit, and he reports no palpitations since that time. He has noted over the past 24 hours development of epigastric to substernal pressure, which he is concerned may be a prelude to firing of his ICD again. The patient was brought to the emergency department by EMS, with a feeling of being washed out, low energy, being lightheaded and dizzy and major concerns regarding potential recurrence of ventricular tachycardia. Initial troponin was 94, with follow-up 84.7. Troponin on 10/02 was 79. Due to persistence of symptoms, patient was referred for evaluation for admission to the [facility] service. Discharge Exam General-alert and oriented x3, no fever, no chills HEENT-head atraumatic and normocephalic, pupils equal and reactive to light, extraocular muscles intact Neck-no lymphadenopathy or thyromegaly, trachea midline Chest-clear to auscultation. No rales, wheezing or rhonchi Cardiac-regular rate and rhythm, normal S1 and S2 Abdomen-normal bowel sounds, no hepatosplenomegaly Extremities-no cyanosis, clubbing, or edema Neuro-cranial nerves II through XII intact, motor and sensory function within normal limits, strength symmetrical, no focal deficits Psych-normal affect, normal mood Discharge Plan Discharge Items Patient Disposition: Home - Self-Care Reason For Visit: ELEVATED TROPONIN, WIDE COMPLEX TACHYCARDIA, EPIGA Discharge Diagnosis: Suspected episodic hypoglycemia, suspected episodic orthostasis Condition on Discharge: Good Activity: Resume your previous activity Non-emergency contact: Primary Care Provider and Channel Marketing Specialist Call non-emergency contact if: you have any medication questions and your symptoms worsen Follow-up/Referrals: Mahesh Herron III, CRNP [Primary Care Provider] - Diet: Heart Healthy and Vegan (no animal product) Addtl Attending Provider Instructions: Stop Jardiance. All other medications remain the same. Obtain home blood pressure monitor and check blood pressure with any symptoms of lightheadedness or near syncope. Follow-up with primary care provider or numerical analysis group manager as soon as possible. Take simethicone as needed for belching Pending Studies at Discharge: No Stand-Alone Forms: My [facility] [employer], Smoking Cessation Medications and DC Order Prescriptions: New simethicone [Gas Relief (simethicone)] 80 mg Tablet,Chewable 80 mg PO Q6H PRNQty: 0 0RF Continued furosemide 40 mg tablet 40 mg PO DAILY PRN (Reason: edema) Qty: 90 1RF Rx Instructions: HAS NOT USED IN SIX MONTHS OF 10/04/2025 tadalafil [Cialis] 20 mg tablet 20 mg PO DAILY PRN (Reason: sexual activity) Qty: 30 11RF Rx Instructions: administer approximately 30min before sexual activity; do not use more than 1 dose per 24hrs benralizumab 30 mg/mL auto-injector 30 mg subcut .COMPLEX Qty: 1 9RF Rx Instructions: INJECT 30MG SC EVERY 8 WEEKS APPROVED for Pen Injector only for Home Administration GOOD 10/06/24-10/07/25 atorvastatin 80 mg tablet 80 mg PO QPM Qty: 90 3RF lisinopril 5 mg tablet 5 mg PO QAM Qty: 90 3RF albuterol sulfate [Ventolin HFA] 90 mcg/actuation HFA aerosol inhaler 2 puff Inhalation .COMPLEX PRN (Reason: Shortness Of Breath Or Wheezing) Qty: 6.7 3RF Rx Instructions: 2 puffs inhalation every 4-6 hours PRN; aspirin 81 mg Tablet,Delayed Release (Dr/Ec) 81 mg PO QAM Xhance 93 mcg/actuation aerosol breath activated 1 spray intranasal BID PRN (Reason: Shortness Of Breath) Rx Instructions: SPRAY 1 SPRAY INTO EACH NOSTRIL TWO TIMES DAILY PRN; lorazepam [Ativan] 0.5 mg tablet 0.5 mg PO HS PRN (Reason: sleep) Qty: 20 0RF amiodarone 200 mg tablet 200 mg PO BID magnesium 200 mg Tablet 250 mg PO DAILY potassium chloride 20 mEq tablet extended release 20 meq PO DAILY multivitamin Tablet 1 tab PO DAILY prednisone 10 mg tablet 5 mg PO QPM spironolactone 25 mg tablet 25 mg PO QPM pantoprazole 40 mg tablet,delayed release (DR/EC) 40 mg PO QPM metoprolol succinate 25 mg tablet extended release 24 hr 12.5 mg PO QPM Dulera 200-5 mcg/actuation HFA aerosol inhaler 2 puff INH BID PRN (Reason: Shortness Of Breath Or Wheezing) Discontinued Jardiance 10 mg tablet 10 mg PO DAILY Qty: 90 3RF Discharge Orders: Discharge Order (Routine); Ordered 10/06/25 Ordered By: Jose Ramon Ghosh Admission Data Admit Date/Time: 10/04/25 20:30 Attending Provider: Jose Ramon Ghosh Admit Provider: Asif Lopes Primary Care Provider: Mahesh Herron III Other Providers: Jeffry Cheek Jr; Asif Lopes; Harshal Anders Hospital Stay Data Consultations 10/04/25 18:41 ED Decision to Admit Stat 10/04/25 20:30 Consult Gastroenterology Routine 10/04/25 22:23 Consult Cardiology Routine Pending Results Patient Have Any Pending Studies at Discharge: No Discharge Instructions Given to Patient (Per Discharging Provider) Stop Jardiance. All other medications remain the same. Obtain home blood pressure monitor and check blood pressure with any symptoms of lightheadedness or near syncope. Follow-up with primary care provider or numerical analysis group manager as soon as possible. Take simethicone as needed for belching Total Time Total Time Spent Total Time Spent (In Minutes): 45 minutes. Total time included patient exam, discharge planning, medication reconciliation. Coding Level of Care Code 68587 INP/OBS DISCH >30 MIN Diagnoses Lightheadedness R42 Ventricular tachycardia I47.20 ICD (implantable cardioverter-defibrillator) discharge Z45.02 Elevated troponin I level R79.89 Chronic systolic (congestive) heart failure I50.22
--- NOTE | 2025-10-06 12:31 | Electrocardiogram Report ---
Test Reason : Blood Pressure : */* mmHG Vent. Rate : 60 BPM Atrial Rate : 60 BPM P-R Int : 124 ms QRS Dur : 152 ms QT Int : 484 ms P-R-T Axes : * 262 111 degrees QTcB Int : 484 ms AV dual-paced rhythm Biventricular pacemaker detected Abnormal ECG When compared with ECG of 05-Oct-2025 05:36, (unconfirmed) No significant change was found Confirmed by Kyle Stauffer ([id number]) on 10/06/2025 12:30:51 PM Referred By: REFERRED SELF Confirmed By: Kyle Stauffer
== END 2025-10-06 11:45 | disposition home or self-care (01) ==
LOC: 2S 16:07 → ED 16:07 → SUATTDRO 20:30 → 2S 22:13